=== PATIENT | female | born 1955 | race Caucasian/White ===

== ENCOUNTER 2017-03-16 07:15 | Emergency (ER) | payer OTHER ==
[~2017-03-16] VITALS: Ht 165.1 cm; Wt 95.7 kg
[~2017-03-16 07:15] MED LIST: CIPRO500 M1; FLEXERIL10 MG PO; MOBIC15 MG PO; MOTRIN600 MG PO; MOTRIN800 MG PO; NAPROSYN375 MG PO; NAPROSYN500 MG PO; NORCO 10/325 MG1 TAB PO; ROBAXIN500 M1 PO; TRAMADOL HCL50 MG PO; ZANTAC150 MG PO
[2017-03-16 07:28] VITALS: BP 107/68
[2017-03-16] MEDS ORDERED: METHOCARBAMOL 500 MG TAB PO ONE (07:45)
[2017-03-16] MEDS ORDERED: KETOROLAC 30 MG/ML VIAL IM ONE (07:45)
[2017-03-16] MEDS ORDERED: DEXAMETHASONE 4 MG/ML VIAL PO ONE (07:45)
--- NOTE | 2017-03-16 07:47 | NUR ---
61/F PRESENT TO ER C/O MID-BACK PAIN x 0400 TODAY. PT STATES PAIN 10/10 SHARP NON-RADIATING. PT DENIES INJURY OR TRAUMA. AAOx4, PERRLA, BREATHING EVEN AND EFFORTLESS. ERMD NOTIFIED OF PATIENT STATUS.
--- NOTE | 2017-03-16 07:48 | NUR ---
Patient being evaluated by physician at bedside.
--- NOTE | 2017-03-16 07:56 | NUR ---
PT TAKEN TO RADIOLOGY VIA WHEELCHAIR BY [employer].
--- NOTE | 2017-03-16 08:10 | NUR ---
PT RETURNED FROM RADIOLOGY.
[2017-03-16 08:37] VITALS: BP 111/65
--- NOTE | 2017-03-16 08:37 | NUR ---
Patient discharged with v/s stable. Written and verbal after care instructions given and explained. Patient alert, oriented and verbalized understanding of instructions. Ambulatory with steady gait. All questions addressed prior to discharge. ID band removed. Patient advised to follow up with PMD. Rx of ROBAXIN 500MG AND TRAMADOL 50MG TABLET given. Patient educated on indication of medication including possible reaction and side effects. Opportunity to ask questions provided and answered.
== END 2017-03-16 08:37 | disposition home or self-care (01) ==
LOC: MED 07:15
DX: G89.29 Other chronic pain (principal); M54.5 Low back pain; M54.9 Dorsalgia, unspecified; M19.90 Unspecified osteoarthritis, unspecified site; K21.9 Gastro-esophageal reflux disease without esophagitis
CPT/HCPCS: 72072; 72110; 81002; 81025; 96372; 99284; J1100; J1885

== ENCOUNTER 2017-06-08 16:03 | Emergency (ER) | payer OTHER ==
[~2017-06-08] VITALS: Ht 165.1 cm; Wt 98.1 kg
[~2017-06-08 16:03] MED LIST changes: -CIPRO500 M1; -FLEXERIL10 MG PO; +HYDR-4452 PO; -MOBIC15 MG PO; -MOTRIN600 MG PO; -MOTRIN800 MG PO; +NAPR375T2 PO; -NAPROSYN375 MG PO; -NAPROSYN500 MG PO; -NORCO 10/325 MG1 TAB PO; -ROBAXIN500 M1 PO; -TRAMADOL HCL50 MG PO; -ZANTAC150 MG PO
[2017-06-08 16:18] VITALS: BP 135/55
--- NOTE | 2017-06-08 17:01 | NUR ---
PATIENT AMBULATED TO BED 5.
[2017-06-08] MEDS ORDERED: ONDANSETRON 4 MG ODT PO ONE (17:35)
[2017-06-08] MEDS ORDERED: KETOROLAC 60 MG/2 ML VIAL IM ONE (17:35)
--- NOTE | 2017-06-08 17:40 | NUR ---
PATIENT PRESENTS TO ED WITH C/O EPIGASTRIC PAIN BURNING NON RADIATING PAIN X THIS AM WITH LOOSE STOOLS X9 EPISODES TODAY-----DENIES NAUSEA/ VOMITING HX----ARTHRITIS RX----NONE; DENIES N/V; SKIN IS PINK/WARM/DRY; AAOX4 WITH EVEN AND STEADY GAIT; LUNGS CLEAR BL; HR EVEN AND REGULAR; PT DENIES ANY FEVER, CP, SOB, OR COUGH AT THIS TIME; PATIENT STATES PAIN OF 10/10 AT THIS TIME; VSS; PATIENT POSITIONED FOR COMFORT; HOB ELEVATED; BEDRAILS UP X2; BED DOWN. ER MD MADE AWARE OF PT STATUS.
[2017-06-08 18:25] VITALS: BP 144/64
--- NOTE | 2017-06-08 18:25 | NUR ---
Patient discharged with v/s stable. Written and verbal after care instructions given and explained. Patient alert, oriented and verbalized understanding of instructions. Ambulatory with steady gait. All questions addressed prior to discharge. ID band removed. Patient advised to follow up with PMD. Rx of ZOFRAN, IMODIUM given. Patient educated on indication of medication including possible reaction and side effects. Opportunity to ask questions provided and answered.
== END 2017-06-08 18:25 | disposition home or self-care (01) ==
LOC: MED 16:03
DX: R10.13 Epigastric pain (principal); R19.7 Diarrhea, unspecified; R11.0 Nausea; K21.9 Gastro-esophageal reflux disease without esophagitis
CPT/HCPCS: 81002; 96372; 99283; J1885; S0119

== ENCOUNTER 2017-10-22 16:14 | Emergency (ER) | payer OTHER ==
[~2017-10-22] VITALS: Ht 167.6 cm; Wt 94.8 kg
[~2017-10-22 16:14] MED LIST changes: +ACET-787 PO; -HYDR-4452 PO
[2017-10-22 16:34] VITALS: BP 132/67
[2017-10-22] MEDS ORDERED: fentaNYL 0.05 MG/ML VIAL IM ONE (17:10)
--- NOTE | 2017-10-22 17:22 | NUR ---
62F BIB SELF WITH C/O 08/25 RIGHT LBP RADIATING TO LUE X 2 DAYS; PT STS URINARY INCONTINENCE X THIS AM; PT DENIES ANY RECENT INJURY OR FALL; PT HAS CHRONIC BACK PACK BUT STS PAIN TODAY IS WORSE; PT ABLE TO AMBULATE BUT WITH DIFFICULTLY; PT IS AOX4, RR ARE EVEN AND UNOLABORED; ER MD AWARE OF PT STATUS; NAD; WILL CONTINUE TO MONITOR.
--- NOTE | 2017-10-22 17:22 | NUR ---
PT TAKEN TO CT VIA GURMAURY ACCOMPANIED BY BLOCK SAW OPERATOR
--- NOTE | 2017-10-22 17:39 | NUR ---
PT RETURNED FROM CT VIA GURNEY ACCOMPANIED BY TRUCK DISPATCHER
[2017-10-22] MEDS ORDERED: NACL 0.9% 1,000 ML IV ONE (18:15)
[2017-10-22] MEDS ORDERED: HYDROmorphone 1 MG/ML AMP IVP ONE (18:15)
[2017-10-22] MEDS: NACL 0.9% 1,000 ML IV SCH (18:25)
[2017-10-22] MEDS ORDERED: methylPREDNISolone SS 125 MG/2 ML VIAL IVP ONE (18:25)
[2017-10-22] MEDS ORDERED: ONDANSETRON 4 MG/2 ML VIAL IVP PRN (18:25)
[2017-10-22] MEDS ORDERED: HYDROmorphone PFS 2 MG/ML SYR IVP PRN ×2 (18:25)
[2017-10-22] MEDS ORDERED: HYDROmorphone PFS 2 MG/ML SYR ONE (18:28)
[2017-10-22 18:51] LABS: BASOPHILS # (AUTO) 0.2 K/uL (0.00-0.22); BASOPHILS % (AUTO) 3.4 % (0.0-2.0); EOSINOPHILS # (AUTO) 0.1 K/uL (0-0.4); EOSINOPHILS % (AUTO) 1.9 % (0.0-4.0); HEMATOCRIT 38.9 % (36-48); LYMPHOCYTES % (AUTO) 28.1 % (20.5-51.1); MEAN CORPUSCULAR HEMOGLOBIN 31 pg (27-31); MEAN CORPUSCULAR HGB CONC 34 g/dL (33-37); MEAN CORPUSCULAR VOLUME 94 fL (80-94); MONOCYTES # (AUTO) 0.4 K/uL (0.8-1.0); MONOCYTES % (AUTO) 6.3 % (1.7-9.3); NEUTROPHILS # (AUTO) 4.2 K/uL (1.8-7.7); NEUTROPHILS % (AUTO) 60.3 % (42.2-75.2); PLATELET COUNT (AUTO) 248 K/uL (140-450); RED BLOOD CELL COUNT(AUTO) 4.16 MIL/uL (4.20-5.40); RED CELL DISTRIBUTION WIDTH 12.1 % (11.6-13.7); WHITE BLOOD COUNT (AUTO) 6.9 K/uL (4.8-10.8)
[2017-10-22 18:59] LABS: ANION GAP 10.4 (8-16); CARBON DIOXIDE 25.1 mmol/L (21-32); CREATININE 0.6 mg/dL (0.6-1.3); POTASSIUM 3.5 mmol/L (3.5-5.1)
[2017-10-22 19:07] LABS: PROTHROMBIN TIME 9.3 secs (10.8-13.4); TOTAL BILIRUBIN 0.2 mg/dL (0.0-1.0)
--- NOTE | 2017-10-22 19:15 | NUR ---
Patient will be admitted to care of [facility]. Admited to Med Surg. Will go to room 106a. Belongings list completed. Report to Rochelle Addison.
--- NOTE | 2017-10-22 19:15 | NUR ---
IV FLUIDS DISCONTINUED; TOTAL INFUSION OF 1000CC OF NS IV FLUIDS
--- NOTE | 2017-10-22 19:30 | NUR ---
PT ARRIVED FROM ER VIA GURNEY. BEDSIDE REPORT GIVEN BY ER NURSE. PT IS AAOX4. NO SIGNS OF ACUTE DISTRESS NOTED. ON ROOM AIR, RESPIRATIONS EVEN AND UNLABORED. IV ACCESS IS INTACT, PATENT AND ASYMPTOMATIC. SKIN INTACT. MRSA COLLECTED. PLAN OF CARE DISCUSSED, PT VERBALIZED UNDERSTANDING. BED IN LOW POSITION, BILATERAL HALF SIDE RAILS UP, CALL LIGHT WITHIN REACH, WILL CONTINUE TO MONITOR.
[2017-10-22 20:00] VITALS: BP 132/66
--- NOTE | 2017-10-22 21:00 | NUR ---
STARTED NORMAL SALINE AT 2100 AT 100 ML/HR.
[2017-10-23] VITALS: BP 136/72
[2017-10-23 00:49] LABS: APPEARANCE,URINE SL CLOUDY (CLEAR); BILIRUBIN,URINE NEGATIVE (NEGATIVE); BLOOD, URINE TRACE-L (NEGATIVE); COLOR,URINE YELLOW (YELLOW); LEUKOCYTE ESTERASE ,URINE NEGATIVE (NEGATIVE); NITRITE, URINE NEGATIVE (NEGATIVE); UGLUCOSE 2+ (NEGATIVE)
[2017-10-23 01:01] LABS: RBC,URINE 0-5 (RARE) /HPF (0-5); WBC,URINE 0-5 (RARE) /HPF (0-5)
--- NOTE | 2017-10-23 02:40 | NUR ---
PT IS SLEEPING, AROUSABLE TO VOICE. NO SIGNS OF ACUTE DISTRESS NOTED. RESPIRATIONS EVEN AND UNLABORED. BED IN LOW POSITION, BILATERAL HALF SIDE RAILS UP, CALL LIGHT WITHIN REACH, WILL CONTINUE TO MONITOR.
[2017-10-23 04:00] VITALS: BP 130/68
[2017-10-23] MEDS: ACETAMINOPHEN 325 MG TAB PO PRN ×2 (04:21→08:35)
[2017-10-23] MEDS: NACL 0.9% 1,000 ML IV SCH (04:25)
[2017-10-23 05:54] LABS: BASOPHILS # (AUTO) 0.1 K/uL (0.00-0.22); BASOPHILS % (AUTO) 1.1 % (0.0-2.0); EOSINOPHILS % (AUTO) 0.1 % (0.0-4.0); HEMATOCRIT 41.3 % (36-48); HEMOGLOBIN 13.5 g/dL (12.0-16.0); LYMPHOCYTES # (AUTO) 0.7 K/uL (2.5-16.5); MEAN CORPUSCULAR HEMOGLOBIN 31 pg (27-31); MEAN CORPUSCULAR HGB CONC 33 g/dL (33-37); MEAN CORPUSCULAR VOLUME 94 fL (80-94); MONOCYTES % (AUTO) 0.4 % (1.7-9.3); NEUTROPHILS # (AUTO) 6.7 K/uL (1.8-7.7); NEUTROPHILS % (AUTO) 89.4 % (42.2-75.2); PLATELET COUNT (AUTO) 255 K/uL (140-450); RED BLOOD CELL COUNT(AUTO) 4.39 MIL/uL (4.20-5.40); RED CELL DISTRIBUTION WIDTH 12.2 % (11.6-13.7); WHITE BLOOD COUNT (AUTO) 7.5 K/uL (4.8-10.8)
[2017-10-23 06:47] LABS: ANION GAP 11.7 (8-16); CREATININE 0.6 mg/dL (0.6-1.3); POTASSIUM 3.7 mmol/L (3.5-5.1); TOTAL BILIRUBIN 0.2 mg/dL (0.0-1.0)
--- NOTE | 2017-10-23 07:10 | NUR ---
ENDORSED PT TO AM NURSE FOR CONTINUITY OF CARE. PT IS IN STABLE CONDITION.
--- NOTE | 2017-10-23 07:15 | NUR ---
RECEIVED REPORT FROM VETERINARY POULTRY INSPECTOR NURSE, PT IS SLEEPING IN BED BUT EASILY AWAKEN, A/OX4, AMBULATORY, IV IS ON THE LEFT AC, PATENT, INTACT, FLUSHING WELL, NO S/S OF RESPIRATORY DISTRESS OR DISCOMFORT NOTED, DISCUSSED PLAN OF CARE WITH PT, PT VERBALIZED UNDERSTANDING, SAFETY/FALL PRECAUTIONS ARE IN PLACE, CALL LIGHT IS WITHIN REACH, WILL CONTINUE TO MONITOR.
[2017-10-23 08:00] VITALS: BP 131/65
[2017-10-23] MEDS ORDERED: ENOXAPARIN 30 MG/0.3 ML SYR SUBQ SCH (09:00)
--- NOTE | 2017-10-23 09:54 | NUR ---
PATIENT HAS BEEN SCREENED AND CATEGORIZED LOW NUTRITION RISK. PATIENT WILL BE SEEN WITHIN 7 DAYS OF ADMISSION. 10/29/[address]
--- NOTE | 2017-10-23 10:00 | NUR ---
PT SLEEPING IN BED, CALL LIGHT IS WITHIN REACH.
--- NOTE | 2017-10-23 12:45 | NUR ---
NS IV FLUID DISCONTINUED AT THIS TIME.
--- NOTE | 2017-10-23 13:00 | NUR ---
DISCHARGE INSTRUCTIONS GIVEN, ID WRIST BAND REMOVED, IV REMOVED, CATHETER TIP INTACT. PT STABLE UPON DISCHARGE ACCOMPANIED BY HER .
--- NOTE | 2017-11-02 17:15 | NUR ---
Joleen maria in ED - 11/02/17 at 1824 by JOSE JUAN IV FLUIDS DISCONTINUED; TOTAL INFUSION OF 1000CC OF NS IV FLUIDS
== END 2017-10-23 13:00 | disposition home or self-care (01) ==
LOC: MED 16:14 → MTU 18:30
PROVIDERS: ADMIT Internal Medicine; ATTEND Internal Medicine
DX: M54.5 Low back pain (principal); G89.29 Other chronic pain; K21.9 Gastro-esophageal reflux disease without esophagitis; M48.00 Spinal stenosis, site unspecified; M19.90 Unspecified osteoarthritis, unspecified site
CPT/HCPCS: 36415; 72131; 80053; 81001; 85025; 85610; 85730; 96361; 96372; 96374; 96375; 99285; G0378; J1170; J2930; J3010; J7030; J1650

== ENCOUNTER 2017-11-05 08:43 | Emergency (ER) | payer OTHER ==
[~2017-11-05] VITALS: Ht 167.6 cm; Wt 94.0 kg
[2017-11-05 08:47] VITALS: BP 145/64
--- NOTE | 2017-11-05 09:05 | NUR ---
PATIENT PRESENTS TO ED WITH LEFT SIDED BACK PAIN RADIAING TO SCAPULA /SHOULDER/ AND HEAD . PT STATES . DENIES N/V/D; SKIN IS PINK/WARM/DRY; AAOX4 WITH EVEN AND STEADY GAIT; LUNGS CLEAR BL; HR EVEN AND REGULAR; PT DENIES ANY FEVER, CP, SOB, OR COUGH AT THIS TIME; PATIENT STATES PAIN OF 9/10 AT THIS TIME; VSS; PATIENT POSITIONED FOR COMFORT; HOB ELEVATED; BEDRAILS UP X2; BED DOWN. ER MD MADE AWARE OF PT STATUS.
--- NOTE | 2017-11-05 09:09 | NUR ---
Patient being evaluated by DR REYEZ at bedside.
[2017-11-05] MEDS ORDERED: KETOROLAC 30 MG/ML VIAL IVP ONE (09:20)
--- NOTE | 2017-11-05 09:25 | NUR ---
PT TO CT SCAN VIA [facility]
--- NOTE | 2017-11-05 09:40 | NUR ---
RETURNED FROM CT VIA [facility]---EKG COMPLETED AND PLACED BACK ON MONITOR
--- NOTE | 2017-11-05 09:45 | NUR ---
BLOOD SAMPLES COLLECTED AND URINE AT BEDSIDE
[2017-11-05 10:42] LABS: HEMOGLOBIN 12.9 g/dL (12.0-16.0); MEAN CORPUSCULAR HEMOGLOBIN 32 pg (27-31); MEAN CORPUSCULAR HGB CONC 34 g/dL (33-37); MEAN CORPUSCULAR VOLUME 93 fL (80-94); PLATELET COUNT (AUTO) 303 K/uL (140-450); RED BLOOD CELL COUNT(AUTO) 4.08 MIL/uL (4.20-5.40); RED CELL DISTRIBUTION WIDTH 12.1 % (11.6-13.7); WHITE BLOOD COUNT (AUTO) 7.1 K/uL (4.8-10.8)
[2017-11-05 10:46] LABS: APPEARANCE,URINE CLEAR (CLEAR); BILIRUBIN,URINE NEGATIVE (NEGATIVE); BLOOD, URINE NEGATIVE (NEGATIVE); COLOR,URINE YELLOW (YELLOW); LEUKOCYTE ESTERASE ,URINE NEGATIVE (NEGATIVE); NITRITE, URINE NEGATIVE (NEGATIVE); PH,URINE 5.5 (5.0-9.0); UGLUCOSE NEGATIVE (NEGATIVE)
[2017-11-05 10:54] LABS: ANION GAP 11.7 (8-16); CARBON DIOXIDE 25.9 mmol/L (21-32); CREATININE 0.7 mg/dL (0.6-1.3); EOSINOPHILS % (MANUAL) 1 % (0-4); LYMPHOCYTES % (MANUAL) 30 % (20-46); MONOCYTES % (MANUAL) 6 % (5-12); POTASSIUM 3.6 mmol/L (3.5-5.1)
[2017-11-05 11:04] LABS: RBC,URINE NONE SEEN /HPF (0-5); WBC,URINE 0-5 (RARE) /HPF (0-5)
[2017-11-05 11:07] LABS: ALBUMIN 3.2 g/dL (3.4-5.0); TOTAL BILIRUBIN 0.4 mg/dL (0.0-1.0)
--- NOTE | 2017-11-05 11:16 | NUR ---
PT HAD BEEN RESTING WITH OU CLOSED, NO GRIMACE NO MOAN NOTED--AWAKEN BY PAIN TO JOINTS DUE TO BEING COLD PER PT---EXTRA WARM BLANKET HANDED TO PT--MD NOTIFIED-- SOON AFTER BLANKET HANDED TO PT--PT REMAINED RESTING WITH OU CLOSED NO GRIMACE NO MOAN---WILL CONTINUE TO OBSERVE FOR PAIN CONTROL
[2017-11-05] MEDS ORDERED: ACETAMINOPHEN EXTRA STRENGTH 500 MG TAB PO ONE (11:20)
[2017-11-05 11:32] VITALS: BP 123/51
--- NOTE | 2017-11-05 11:33 | NUR ---
Patient discharged with v/s stable. Written and verbal after care instructions given and explained. Patient alert, oriented and verbalized understanding of instructions. Ambulatory with steady gait. All questions addressed prior to discharge. ID band removed. Patient advised to follow up with PMD. Rx of TRAMADOL given. Patient educated on indication of medication including possible reaction and side effects. Opportunity to ask questions provided and answered. LAB RESULTS/ CT RESULTS HANDED TO PT---TO F/U WITH PMD THIS WEEK
== END 2017-11-05 11:33 | disposition home or self-care (01) ==
LOC: MED 08:43
DX: S43.402A Unspecified sprain of left shoulder joint, initial encounter (principal); G89.29 Other chronic pain; M54.5 Low back pain; M48.061 Spinal stenosis, lumbar region without neurogenic claudication; R55 Syncope and collapse; K21.9 Gastro-esophageal reflux disease without esophagitis; F17.210 Nicotine dependence, cigarettes, uncomplicated; Z79.899 Other long term (current) drug therapy; W19.XXXA Unspecified fall, initial encounter; Y93.89 Activity, other specified; Y92.098 Other place in other non-institutional residence as the place of occurrence of the external cause; Y99.8 Other external cause status
CPT/HCPCS: 36415; 70450; 71010; 72131; 73030; 80053; 81001; 84484; 85025; 93005; 96374; 99285; J1885; Q0092

== ENCOUNTER 2018-12-11 11:35 | Emergency (ER) | payer OTHER ==
[~2018-12-11] VITALS: Ht 165.1 cm; Wt 92.3 kg
[2018-12-11 11:43] VITALS: BP 85/47
--- NOTE | 2018-12-11 11:55 | NUR ---
63 YO F BIB SELF W/ C/O HEADACHE AND BACK PAIN X 3 DAYS. DENIES INJURY. STATES SHE HAS ARTHRITIS THAT CAUSES HER BACK PAIN. STATES HER HEAD FEELS LIKE IT HAS A BALLOON IN HER HEAD. TOOK "A WHOLE BOTTLE" OF ADVIL W/O RELIEF. DENIES ANY SI. PT AAOX4, PERRLA INTACT. PUPILS 3M. DENIES N/V. PT STATES HER BP IS ALWAYS LOW, STATES 85/47 IS NOT UNUSUAL FOR HER.
[2018-12-11 12:29] LABS: BASOPHILS # (AUTO) 0.1 K/uL (0.00-0.22); BASOPHILS % (AUTO) 0.8 % (0.0-2.0); EOSINOPHILS # (AUTO) 0.2 K/uL (0-0.4); EOSINOPHILS % (AUTO) 2.4 % (0.0-4.0); HEMOGLOBIN 13.4 g/dL (12.0-16.0); LYMPHOCYTES % (AUTO) 30.7 % (20.5-51.1); MEAN CORPUSCULAR HEMOGLOBIN 31 pg (27-31); MEAN CORPUSCULAR HGB CONC 33 g/dL (33-37); MEAN CORPUSCULAR VOLUME 93.7 fL (80-94); MONOCYTES # (AUTO) 0.5 K/uL (0.8-1.0); MONOCYTES % (AUTO) 7.1 % (1.7-9.3); NEUTROPHILS # (AUTO) 3.9 K/uL (1.8-7.7); PLATELET COUNT (AUTO) 303 K/uL (140-450); RED BLOOD CELL COUNT(AUTO) 4.38 MIL/uL (4.20-5.40); RED CELL DISTRIBUTION WIDTH 12.7 % (11.6-13.7); WHITE BLOOD COUNT (AUTO) 6.5 K/uL (4.8-10.8)
--- NOTE | 2018-12-11 12:30 | NUR ---
PATIENT REFUESED TO GIVE URINE AT THIS TIME.
[2018-12-11] MEDS ORDERED: KETOROLAC 30 MG/ML VIAL IVP ONE (12:45)
[2018-12-11] MEDS ORDERED: NACL 0.9% 1,000 ML IV ONE (12:45)
[2018-12-11] MEDS ORDERED: HYDROcodone/APAP 10/325 MG 1 TAB TAB PO ONE (12:45)
[2018-12-11 12:50] LABS: ANION GAP 8.9 (8-16); CARBON DIOXIDE 29.9 mmol/L (21-32); CREATININE 0.7 mg/dL (0.6-1.3); POTASSIUM 3.8 mmol/L (3.5-5.1)
[2018-12-11 12:53] LABS: PROTHROMBIN TIME 8.6 secs (10.8-13.4)
[2018-12-11 12:56] LABS: ALBUMIN 2.9 g/dL (3.4-5.0); TOTAL BILIRUBIN 0.2 mg/dL (0.0-1.0)
--- NOTE | 2018-12-11 13:00 | NUR ---
PATIENT UNABLE TO GIVE URINE AT THIS TIME.
[2018-12-11 14:24] VITALS: BP 92/50
--- NOTE | 2018-12-11 14:25 | NUR ---
Patient discharged with v/s stable. Written and verbal after care instructions given and explained. Patient verbalized understanding. Ambulatory with steady gait. All questions addressed prior to discharge. Advised to follow up with PMD.
== END 2018-12-11 14:25 | disposition home or self-care (01) ==
LOC: MED 11:35
DX: I95.9 Hypotension, unspecified (principal); R51 Headache; M54.9 Dorsalgia, unspecified; R50.9 Fever, unspecified; I10 Essential (primary) hypertension; Z79.891 Long term (current) use of opiate analgesic; Z79.1 Long term (current) use of non-steroidal anti-inflammatories (NSAID)
CPT/HCPCS: 70450; 80053; 84484; 85025; 85610; 85730; 93005; 96361; 96374; 99284; J1885; J7030

== ENCOUNTER 2019-05-10 11:43 | Emergency (ER) | payer OTHER ==
[~2019-05-10] VITALS: Ht 165.1 cm; Wt 68.0 kg
[2019-05-10 11:48] VITALS: BP 128/77
--- NOTE | 2019-05-10 12:01 | NUR ---
PT BIB SELF C/O LT KNEE PAIN X3 WEEKS AGO, DIZZINESS AND WEAKNESS STARTING 3 DAYS AGO, AND TINGLING IN FEET STARTING TODAY. PT REPORTS FALLING AT HOME WHILE STANDING ON A STEP, PT UNSURE OF HOW SHE FELL STATING "I WASN'T WALKING, JUST TRALKING TO MY SON, AND I JUST FELL." PT REPORTS FALLING ON LT KNEE, NO BRUISING, SWELLING, REDNESS, OR DEFORMITY PRESENT. + CMS. PT AAOX4, COOPERATIVE, PERRLA, FACIAL SYMMETRY INTACT, AND WAFER MACHINE OPERATOR STRONG/EQUAL. VSS. ER TO SEE PT. MEDHX:ARTHRITIS
[2019-05-10] MEDS ORDERED: MORPHINE SULFATE 4 MG/ML SYR IM ONE (12:15)
[2019-05-10] MEDS ORDERED: KETOROLAC 60 MG/2 ML VIAL IM ONE (12:15)
--- NOTE | 2019-05-10 12:30 | NUR ---
X-RAY AT BEDSIDE AT THIS TIME.
--- NOTE | 2019-05-10 13:27 | NUR ---
PT RESTING IN BED, ARROUSABLE BY VOICE. PT REPORTS PAIN AT 2/10 AT THIS TIME, VSS.
[2019-05-10 14:29] VITALS: BP 140/67
--- NOTE | 2019-05-10 14:29 | NUR ---
PT TO BE D/C , BOYFRIEND TAHIR CALLED TO PRIMARY TEACHING ASSISTANT PT D/T MEDICATIONS GIVEN IN ER AND PT IS DROWSY, TAHIR STATES HE CAN PRIMARY TEACHING ASSISTANT PT IN 10-15 MIN.
== END 2019-05-10 14:49 | disposition home or self-care (01) ==
LOC: MED 11:43
DX: S80.02XA Contusion of left knee, initial encounter (principal); I10 Essential (primary) hypertension; Z79.891 Long term (current) use of opiate analgesic; Z79.1 Long term (current) use of non-steroidal anti-inflammatories (NSAID); W19.XXXA Unspecified fall, initial encounter; Y93.89 Activity, other specified; Y92.89 Other specified places as the place of occurrence of the external cause; Y99.8 Other external cause status
CPT/HCPCS: 29505; 73562; 96372; 99283; J1885; J2270; Q0092

== ENCOUNTER 2020-08-16 01:40 | Emergency (ER) | payer SELFPAY ==
[~2020-08-16] VITALS: Ht 167.6 cm; Wt 89.9 kg
[~2020-08-16 01:40] MED LIST changes: -ACET-787 PO; +HYDR-5191 PO
[2020-08-16 01:50] VITALS: BP 142/77
--- NOTE | 2020-08-16 01:55 | NUR ---
PT AMBULATED TO BED WITH STEADY GAIT
--- NOTE | 2020-08-16 01:56 | NUR ---
65 YO F BIB SELF FOR C/C OF NAUSEA WITH NO VOMITING X2 HOURS WITH 7/10 DIFFUSE ABDOMINAL CRAMPING. PT STATES SHE DRANK ICED TEA THAT WAS NEAR/OR AROUND SOMEONE SPRAYING UNKNOW BUG SPRAY AND SHE THINKS SHE MAY HAVE INGESTED SOME. BOWEL SOUNDS NORMOACTIVE THROUGHOUT. LBM WAS YESTERDAY MORNING, SOFT AND FORMED. DENIES DIARRHEA. PT DENIES FEVER, CHILLS, COUGH, SOB, AND TRAVEL. BED LOCKED AND IN LOWEST POSITION. SIDE RAILS X1. MED HX: ARTHRITIS RX: DENIES NKA
[2020-08-16] MEDS ORDERED: ONDANSETRON 4 MG ODT PO ONE (02:05)
--- NOTE | 2020-08-16 02:08 | NUR ---
LABS COLLECTED AND SENT TO LAB
[2020-08-16 02:13] LABS: BASOPHILS # (AUTO) 0.1 K/uL (0.00-0.22); BASOPHILS % (AUTO) 0.9 % (0.0-2.0); EOSINOPHILS # (AUTO) 0.2 K/uL (0-0.4); EOSINOPHILS % (AUTO) 3.2 % (0.0-4.0); HEMOGLOBIN 12.7 g/dL (12.0-16.0); LYMPHOCYTES # (AUTO) 1.9 K/uL (2.5-16.5); MEAN CORPUSCULAR HEMOGLOBIN 32 pg (27-31); MEAN CORPUSCULAR HGB CONC 33 g/dL (33-37); MEAN CORPUSCULAR VOLUME 95.6 fL (80-94); MONOCYTES # (AUTO) 0.5 K/uL (0.8-1.0); MONOCYTES % (AUTO) 6.9 % (1.7-9.3); NEUTROPHILS # (AUTO) 3.9 K/uL (1.8-7.7); PLATELET COUNT (AUTO) 302 K/uL (140-450); RED BLOOD CELL COUNT(AUTO) 3.98 MIL/uL (4.20-5.40); RED CELL DISTRIBUTION WIDTH 13.3 % (11.6-13.7); WHITE BLOOD COUNT (AUTO) 6.5 K/uL (4.8-10.8)
--- NOTE | 2020-08-16 02:25 | NUR ---
PT TAKEN TO CT VIA WHEELCHAIR
[2020-08-16 02:27] LABS: ALBUMIN 3.2 g/dL (3.4-5.0); ANION GAP 16.6 (8-16); ASPARTATE AMINOTRANSFERASE 18 U/L (15-37); CARBON DIOXIDE 23.2 mmol/L (21-32); CHLORIDE 105 mmol/L (98-107); CREATININE 0.8 mg/dL (0.6-1.3); GFR ARICAN-AMERICAN 93 mL/min (>90); GLUCOSE 162 mg/dL (74-106); LIPASE 305 U/L (73-393); POTASSIUM 3.8 mmol/L (3.5-5.1); SODIUM SERUM 141 mmol/L (136-145); TOTAL BILIRUBIN 0.2 mg/dL (0.0-1.0); UREA NITROGEN, BLOOD 17 mg/dL (7-18)
--- NOTE | 2020-08-16 03:00 | NUR ---
pt states her nausea has resolved post po zofran
[2020-08-16 03:21] VITALS: BP 142/78
== END 2020-08-16 03:21 | disposition home or self-care (01) ==
LOC: MED 01:40
DX: R10.9 Unspecified abdominal pain (principal); R11.0 Nausea; I10 Essential (primary) hypertension; Z98.890 Other specified postprocedural states; Z79.899 Other long term (current) drug therapy
CPT/HCPCS: 36415; 74176; 80053; 83690; 85025; 99284; G0482; Q0162

== ENCOUNTER 2021-06-13 17:45 | Emergency (ER) | payer MEDICAID ==
[~2021-06-13] VITALS: Ht 167.6 cm; Wt 90.7 kg
[2021-06-13 17:57] VITALS: BP 122/70
--- NOTE | 2021-06-13 18:02 | NUR ---
PT W/C ASSISTED TO BED 10.
--- NOTE | 2021-06-13 18:08 | NUR ---
65/F presents to ED with c/o right knee pain. Patient states she was making her bed this morning when she felt a pull in her leg. Patient states she has constant 10/10 sharp pain that worsens with movement, stating she is unable to ambulate due to pain. Patient wheel chair assisted, states she normal uses no assistive devices to ambulate. Patient reports taking Advil prior to arrival to ED with some relief. Able to move extremities appropriately.
[2021-06-13] MEDS ORDERED: HYDROcodone/APAP 5/325 MG 1 TAB TAB PO ONE (18:25)
--- NOTE | 2021-06-13 18:27 | NUR ---
medical technologist hematology at bedside
--- NOTE | 2021-06-13 19:10 | NUR ---
Pt report given to Kirill. Transfer of care at this time.
--- NOTE | 2021-06-13 19:42 | NUR ---
PT. LAYING COMFORTABLY IN SUPINE POSITION. VOICES NO COMPLAINTS AT THIS TIME.
--- NOTE | 2021-06-13 20:17 | NUR ---
PT. REQUESTING FOOD, STATES "I'M HUNGRY." GIVEN CHICKEN SANDWICH AND ORANGE/APPLE JUICE.
[2021-06-13] MEDS ORDERED: ACET-9527 PO (20:52)
--- NOTE | 2021-06-13 20:52 | NUR ---
APPLIED KNEE IMMOBILIZER TO RIGHT KNEE WITHOUT ANY ISSUES. PT DEMONSTRATED PROPER USE OF CRUTCHES
[2021-06-13 21:05] VITALS: BP 122/70
--- NOTE | 2021-06-13 21:05 | NUR ---
Patient discharged with v/s stable. Written and verbal after care instructions given and explained. Patient alert, oriented and verbalized understanding of instructions. Ambulatory with steady gait. All questions addressed prior to discharge. ID band removed. Patient advised to follow up with PMD. Rx of HYDROCODONE/ACETAMINOPHEN given. Patient educated on indication of medication including possible reaction and side effects. Opportunity to ask questions provided and answered.
== END 2021-06-13 21:05 | disposition home or self-care (01) ==
LOC: MED 17:45
DX: S82.141A Displaced bicondylar fracture of right tibia, initial encounter for closed fracture (principal); X58.XXXA Exposure to other specified factors, initial encounter; Y93.89 Activity, other specified; Y92.89 Other specified places as the place of occurrence of the external cause; Y99.8 Other external cause status
CPT/HCPCS: 73562; 73700; 99284

== ENCOUNTER 2021-08-15 00:12 | Emergency (ER) | payer MEDICAID ==
[~2021-08-15] VITALS: Ht 167.6 cm; Wt 81.6 kg
[~2021-08-15 00:12] MED LIST changes: +ACET-9527 PO
[2021-08-15 00:23] VITALS: BP 153/120
--- NOTE | 2021-08-15 00:26 | NUR ---
TO ROOM 2 VIA W/C
--- NOTE | 2021-08-15 00:32 | NUR ---
66 yo f bib self with c/c of sharp lower abd pain 10/10 x3hrs. nonrad. pt took pepto and had to relief. pt is groaning and grasping abd. pt is unable to lie still. +n/v and chills. denies diarrhea and fever. pt states she doesnt recall the last time she had a bm. hx:arthritis, fractured knees rx: unable to recall allerg: denies
--- NOTE | 2021-08-15 00:42 | NUR ---
ermd at bedside examining pt.
--- NOTE | 2021-08-15 00:42 | NUR ---
partner reported they ate food that was made yesterday and pain started shortly after. denies anyone else feeling this way at home.
[2021-08-15] MEDS ORDERED: ONDANSETRON 4 MG/2 ML VIAL IVP ONE (00:55)
[2021-08-15] MEDS ORDERED: NACL 0.9% 1,000 ML IV ONE (00:55)
[2021-08-15] MEDS ORDERED: MORPHINE SULFATE 2 MG/ML SYR IVP ONE (00:55)
[2021-08-15 01:07] LABS: BASOPHILS # (AUTO) 0.1 K/uL (0.00-0.22); BASOPHILS % (AUTO) 0.8 % (0.0-2.0); EOSINOPHILS # (AUTO) 0.2 K/uL (0-0.4); EOSINOPHILS % (AUTO) 2.8 % (0.0-4.0); HEMATOCRIT 36.8 % (36-48); HEMOGLOBIN 12.3 g/dL (12.0-16.0); LYMPHOCYTES # (AUTO) 2.8 K/uL (2.5-16.5); LYMPHOCYTES % (AUTO) 35.3 % (20.5-51.1); MEAN CORPUSCULAR HEMOGLOBIN 32 pg (27-31); MEAN CORPUSCULAR HGB CONC 34 g/dL (33-37); MEAN CORPUSCULAR VOLUME 94.1 fL (80-94); MONOCYTES # (AUTO) 0.6 K/uL (0.8-1.0); NEUTROPHILS # (AUTO) 4.2 K/uL (1.8-7.7); NEUTROPHILS % (AUTO) 53.1 % (42.2-75.2); PLATELET COUNT (AUTO) 323 K/uL (140-450); RED BLOOD CELL COUNT(AUTO) 3.91 MIL/uL (4.20-5.40); RED CELL DISTRIBUTION WIDTH 13.4 % (11.6-13.7); WHITE BLOOD COUNT (AUTO) 7.9 K/uL (4.8-10.8)
--- NOTE | 2021-08-15 01:18 | NUR ---
pt is no longer crying. pt stated she feels better. o2 sat 88% after morphine. placed on 2l nc, o2 sat 100%, ermd made aware.
[2021-08-15 01:22] LABS: ALBUMIN 3.2 g/dL (3.4-5.0); ANION GAP 15.7 (8-16); CARBON DIOXIDE 23.7 mmol/L (21-32); CREATININE 0.6 mg/dL (0.6-1.3); POTASSIUM 3.4 mmol/L (3.5-5.1); TOTAL BILIRUBIN 0.3 mg/dL (0.0-1.0)
[2021-08-15] MEDS ORDERED: ACETAMINOPHEN EXTRA STRENGTH 500 MG TAB PO ONE (02:45)
--- NOTE | 2021-08-15 02:45 | NUR ---
pt ambulated to with assistance. urine specimen cup provided.
[2021-08-15] MEDS ORDERED: ONDANSETRON 4 MG ODT PO ONE (03:00)
[2021-08-15] MEDS ORDERED: MAGNESIUM CITRATE 300 ML BTL PO ONE ×2 (03:00→03:35)
--- NOTE | 2021-08-15 03:00 | NUR ---
PT AMBULATED BACK TO BED.
[2021-08-15] MEDS ORDERED: ONDA-24 SL (03:01)
[2021-08-15] MEDS ORDERED: ALUMINUM HYD/MAG/SIMETHICONE 30 ML, DICYCLOMINE HCL LIQUID 20 MG, LIDOCAINE VISCOUS 2% ... PO ONE ×3 (03:05)
[2021-08-15] MEDS ORDERED: DICYCLOMINE HCL LIQUID 10 MG/5 ML UDC ONE (03:12)
[2021-08-15] MEDS ORDERED: ALUMINUM HYD/MAG/SIMETHICONE 30 ML UDC ONE (03:12)
[2021-08-15] MEDS ORDERED: MAGNESIUM CITRATE 300 ML BTL ONE (03:28)
[2021-08-15 03:33] VITALS: BP 141/56
== END 2021-08-15 03:33 | disposition home or self-care (01) ==
LOC: MED 00:12
DX: R10.84 Generalized abdominal pain (principal); R11.2 Nausea with vomiting, unspecified
CPT/HCPCS: 36415; 74176; 80053; 83605; 85025; 96361; 96374; 96375; 99284; J2270; J2405; J7030

== ENCOUNTER 2021-11-20 13:33 | Emergency (ER) | payer MEDICAID ==
[~2021-11-20] VITALS: Ht 167.6 cm; Wt 99.8 kg
[~2021-11-20 13:33] MED LIST changes: +ONDA-188 SL
[2021-11-20 14:09] VITALS: BP 178/106
--- NOTE | 2021-11-20 14:19 | NUR ---
PT W/C ASSISTED TO LOBBY
--- NOTE | 2021-11-20 16:30 | NUR ---
ATTEMPTED TO CALL TO TRIAGE 3 TIMES NO ANSWER. NUMBER ON FILE NO ANSWER.
--- NOTE | 2021-11-20 16:49 | NUR ---
PATIENT LEFT WITHOUT BEING SEEN BY DR. HERNANDEZ. NO FURTHER CARE PROVIDED FOR PATIENT.
== END 2021-11-20 16:49 | disposition left against medical advice (07) ==
LOC: MED 13:33
DX: R11.2 Nausea with vomiting, unspecified (principal); Z53.21 Procedure and treatment not carried out due to patient leaving prior to being seen by health care provider

== ENCOUNTER 2023-03-18 15:10 | Inpatient (IN) | payer MEDICAID ==
[~2023-03-18] VITALS: Ht 167.6 cm; Wt 62.6 kg
[2023-03-18] MEDS: metroNIDAZOLE 500 MG/NS PREMIX 100 ML IV SCH (00:05)
[2023-03-18 15:20] VITALS: BP 182/74
[2023-03-18] MEDS ORDERED: ONDANSETRON 4 MG/2 ML VIAL IVP ONE (15:20)
[2023-03-18] MEDS ORDERED: MORPHINE SULFATE 4 MG/ML SYR IVP ONE (15:20)
--- NOTE | 2023-03-18 15:32 | NUR ---
PATIENT TAKEN TO CT
--- NOTE | 2023-03-18 15:45 | NUR ---
67 YO FEMALE PRESENTS TO ED WITH C/O SHARP INTERMITTENT 9/10 ABDOMINAL PAIN GOING ON FOR 2X DAYS. PATIENT ALSO COMPLAINS OF NAUSEA AND VOMITING ASSOCIATED WITH PAIN. DENIES CHEST PAIN OR SHORTNESS OF BREATH. DENIES ANY PMH AND ALLERGIES.
[2023-03-18 16:04] LABS: BASOPHILS # (AUTO) 0.1 K/uL (0.00-0.22); BASOPHILS % (AUTO) 0.8 % (0.0-2.0); EOSINOPHILS % (AUTO) 0.4 % (0.0-4.0); HEMATOCRIT 31.6 % (36-48); HEMOGLOBIN 10.2 g/dL (12.0-16.0); LYMPHOCYTES # (AUTO) 1.6 K/uL (2.5-16.5); LYMPHOCYTES % (AUTO) 19.8 % (20.5-51.1); MEAN CORPUSCULAR HEMOGLOBIN 24 pg (27-31); MEAN CORPUSCULAR HGB CONC 32 g/dL (33-37); MEAN CORPUSCULAR VOLUME 74.2 fL (80-94); MONOCYTES # (AUTO) 0.6 K/uL (0.8-1.0); MONOCYTES % (AUTO) 7.2 % (1.7-9.3); NEUTROPHILS # (AUTO) 5.8 K/uL (1.8-7.7); NEUTROPHILS % (AUTO) 71.8 % (42.2-75.2); PLATELET COUNT (AUTO) 627 K/uL (140-450); RED BLOOD CELL COUNT(AUTO) 4.25 MIL/uL (4.20-5.40); RED CELL DISTRIBUTION WIDTH 15.5 % (11.6-13.7); WHITE BLOOD COUNT (AUTO) 8.1 K/uL (4.8-10.8)
[2023-03-18] MEDS ORDERED: PIPERACILLIN/TAZOBACTAM 3.375 GM in DEXTROSE 5% 50 ML IV ONE (16:15)
[2023-03-18 16:19] LABS: ANION GAP 13.3 (8-16); CARBON DIOXIDE 25.9 mmol/L (21-32); CREATININE 0.5 mg/dL (0.6-1.3); POTASSIUM 3.2 mmol/L (3.5-5.1); TOTAL BILIRUBIN 0.5 mg/dL (0.0-1.0)
[2023-03-18] MEDS ORDERED: PIPERACILLIN/TAZOBACTAM 3.375 GM VIAL IV ONE (16:23)
--- NOTE | 2023-03-18 17:32 | NUR ---
PATIENT DENIES ANY HOME MEDICATION.
[2023-03-18] MEDS ORDERED: HYDROcodone/APAP 5/325 MG 1 TAB TAB PO PRN (17:35)
[2023-03-18] MEDS ORDERED: ACETAMINOPHEN 325 MG TAB PO PRN (17:35)
[2023-03-18] MEDS ORDERED: HYDROcodone/APAP 10/325 MG 1 TAB TAB PO PRN (17:35)
[2023-03-18] MEDS: ENOXAPARIN 40 MG/0.4 ML SYR SUBQ SCH (19:08)
[2023-03-18] MEDS ORDERED: cefTRIAXone 1,000 MG VIAL ONE (19:11)
--- NOTE | 2023-03-18 19:16 | NUR ---
REPORT GIVEN TO PM NURSE ANDREI.
--- NOTE | 2023-03-18 19:26 | NUR ---
Patient resting in bed, A/Ox4, chest rise and fall symmetrical, no s/s of distress, on monitor.
[2023-03-18] MEDS ORDERED: KCL 20 MEQ IN 100 mL PREMIX 100 ML IV ONE ×2 (19:40→19:47)
--- NOTE | 2023-03-18 19:55 | NUR ---
PT TAKEN BY OR TEAM
--- NOTE | 2023-03-18 19:55 | NUR ---
Patient picked up by OR Nurse Francisco DAY for appendectomy surgery. Report given to OR Nurse Francisco DAY, OR Nurse Singh RN verbalized understanding of report, no further questions. All belongings sent with patient. OR Nurse Francisco DAY verbalized understanding of room and report for Medsurg unit after surgery. Addendum: 03/18/23 at 1999 by [email or web address] Patient will be admitted to care of Dr. Toth. Will go to room OR for surgery. Belongings list completed. Patient picked up by OR Nurse Francisco DAY for appendectomy surgery. Report given to OR Nurse Francisco DAY, OR Nurse Francisco DAY verbalized understanding of report, no further questions. All belongings sent with patient. OR Nurse Francisco DAY verbalized understanding of room and report for Medsurg unit after surgery.
[2023-03-18] MEDS ORDERED: ROCURONIUM 50 MG/5 ML VIAL IV ONE ×2 (20:00→20:58)
[2023-03-18] MEDS ORDERED: KETOROLAC 30 MG/ML VIAL ONE ×2 (20:00→20:58)
[2023-03-18] MEDS ORDERED: SUGAMMADEX SODIUM 200 MG/2 ML VIAL IV ONE ×2 (20:00→21:01)
[2023-03-18] MEDS ORDERED: PROPOFOL 200 MG/20 ML VIAL IV ONE ×3 (20:00→20:58)
[2023-03-18] MEDS ORDERED: fentaNYL citrate 0.05 MG/ML - 50mL vial IV ONE (20:00)
[2023-03-18] MEDS ORDERED: SUCCINYLCHOLINE CHLORIDE 200 MG/10 ML VIAL IVP ONE ×2 (20:00→20:58)
[2023-03-18] MEDS ORDERED: ceFAZolin 1,000 MG VIAL ONE (20:00)
[2023-03-18] MEDS ORDERED: SEVOFLURANE 250 ML BTL INH ONE (20:00)
[2023-03-18] MEDS ORDERED: ONDANSETRON 4 MG/2 ML VIAL ONE ×2 (20:00→20:58)
[2023-03-18] MEDS ORDERED: BUPIVACAINE-MPF/EPI 0.25% 30 ML VIAL INJ ONE (20:06)
[2023-03-18] MEDS ORDERED: fentaNYL citrate 0.05 MG/ML VIAL ONE (20:14)
[2023-03-18] MEDS ORDERED: METOCLOPRAMIDE 10 MG/2 ML INJ VIAL IVP PRN (21:25)
[2023-03-18] MEDS ORDERED: hydrALAZINE 20 MG/ML VIAL IVP PRN (21:25)
[2023-03-18] MEDS ORDERED: LABETALOL 20 MG/4 ML VIAL IVP PRN (21:25)
[2023-03-18] MEDS: HYDROmorphone 1 MG/ML AMP IVP PRN ×2 (21:35→21:50)
[2023-03-18 22:30] VITALS: BP 95/60
[2023-03-18] MEDS: NACL 0.9% 1,000 ML IV SCH (22:30)
--- NOTE | 2023-03-18 22:30 | NUR ---
RECEIVED PT FROM OR / RECOVERY PER JAZZ , STILL SLEEPY , ALTHOUGH PT ANSWERING QUESTION CORRECTLY BUT SHE IS TOO SLEPPY AND EASILY GO BACK TO SLEEP , O2 SAT 97 5 , IV SITES INTACT AND PATENT . WILL HOOK TO TELE MONITOR . WILL COMPLETE FURTHER ADMISSION ASSESSMENT . PUT PT ON FALL PREVENTION PROTOCOL , CALL LIGHT WITHIN REACH . SKIN INTACT EXCEPT 3 SURGICAL INCISSION ON ABD. SEALED W/ DERMABOND , DENIES PAIN AT THIS TIME , GOT DILAUDID AT PRIOR TO TRANSFER HERE . POST OF LAP AP - WILL CONT. TO MONITOR .
[2023-03-18 22:48] LABS: ANION GAP 10.7 (8-16); CARBON DIOXIDE 27.8 mmol/L (21-32); CREATININE 0.6 mg/dL (0.6-1.3); POTASSIUM 3.5 mmol/L (3.5-5.1)
--- NOTE | 2023-03-18 23:40 | NUR ---
FOR CHEST / ABD CT W/ CONTRAST , BUT PT IS POST OP , STILL TOO EASILY , AROUSABLE BUT EASILY GO BACK TO SLEEP - NOT FAVORABLE TIME TO GET CONSENT FOR CONTRAST - WILL CONT. TO MONITOR .
[2023-03-19] MEDS: metroNIDAZOLE 500 MG/NS PREMIX 100 ML IV SCH ×4 (00:05→22:29)
--- NOTE | 2023-03-19 02:00 | NUR ---
SLEEPING , BUT AROUSABLE .
--- NOTE | 2023-03-19 03:10 | NUR ---
c/o pain - bp 127/ 65 , o2 sat 100 % , pr 65 , will medicate .
[2023-03-19 04:00] VITALS: BP 100/59
--- NOTE | 2023-03-19 04:00 | NUR ---
try to get the cpontrast consent , but pt is not fully understand the explanation , she sasking a lot of things about it - will endorse .
[2023-03-19 05:05] LABS: BASOPHILS % (AUTO) 0.6 % (0.0-2.0); EOSINOPHILS % (AUTO) 0.4 % (0.0-4.0); HEMATOCRIT 26.4 % (36-48); HEMOGLOBIN 8.4 g/dL (12.0-16.0); LYMPHOCYTES # (AUTO) 1.1 K/uL (2.5-16.5); LYMPHOCYTES % (AUTO) 17.8 % (20.5-51.1); MEAN CORPUSCULAR HEMOGLOBIN 24 pg (27-31); MEAN CORPUSCULAR HGB CONC 32 g/dL (33-37); MEAN CORPUSCULAR VOLUME 74.9 fL (80-94); MONOCYTES # (AUTO) 0.9 K/uL (0.8-1.0); MONOCYTES % (AUTO) 14.9 % (1.7-9.3); NEUTROPHILS % (AUTO) 66.3 % (42.2-75.2); PLATELET COUNT (AUTO) 494 K/uL (140-450); RED BLOOD CELL COUNT(AUTO) 3.52 MIL/uL (4.20-5.40); RED CELL DISTRIBUTION WIDTH 15.6 % (11.6-13.7)
--- NOTE | 2023-03-19 07:25 | NUR ---
ENDORSE PT FOR CONT. OF CARE , WHILE GIVING BEDSIDE REPORT PT SUDDENLY C/O PAIN - PER AM NURSE SHE WILL GIVE PAIN MED , ENDORSE TO AM NURSE THE METRONIDAZOLE IS STILL ON GOING SHE HAVE TO WATCH IT , AM NURSE VERBALIZES UNDERSTANDING .
[2023-03-19 07:56] LABS: ANION GAP 16.5 (8-16); CARBON DIOXIDE 23.1 mmol/L (21-32); CREATININE 0.5 mg/dL (0.6-1.3); POTASSIUM 3.6 mmol/L (3.5-5.1)
[2023-03-19 08:00] VITALS: BP 100/59
[2023-03-19] MEDS: NACL 0.9% 1,000 ML IV SCH ×2 (08:00→15:30)
--- NOTE | 2023-03-19 09:31 | NUR ---
PATIENT HAS BEEN SCREENED AND CATEGORIZED MODERATE NUTRITION RISK. PATIENT WILL BE SEEN WITHIN 3-5 DAYS OF ADMISSION. [address]
[2023-03-19] MEDS: HYDROmorphone 1 MG/ML AMP IVP PRN ×3 (10:49→20:24)
--- NOTE | 2023-03-19 11:51 | NUR ---
DC PLANNING ASSESSMENT COMPLETE PLEASE REFER TO ASSESSMENT FOR ADDITIONAL DETAILS PT REPORTS DC PLAN IS TO RETURN HOME WITH PARTNER PROVIDING TRANSPORTATION WHEN MEDICALLY STABLE. PT REPORTS SHE MAY REQUIRE RIDE SHARE IF PARTNER UNABLE TO P/UP. SW ENCOURAGED PT TO NOTIFY NURSE UPON DC, SO THAT UBER/LYFT CAN BE ARRANGED. PT VERBALIZED UNDERSTANDING Addendum: 03/19/23 at 1154 by Emily MALONE Amended: Links added.
[2023-03-19 12:00] VITALS: BP 143/71
[2023-03-19 16:00] VITALS: BP 141/73
--- NOTE | 2023-03-19 16:48 | NUR ---
pATIENT C/O PAIN 07/26, DILAUDID 1MG GIVEN IVP
--- NOTE | 2023-03-19 17:10 | NUR ---
pATIENT EXPRESSED RELIEF FROM PAIN 0/10
[2023-03-19 17:20] LABS: APPEARANCE,URINE CLEAR (CLEAR); BILIRUBIN,URINE NEGATIVE (NEGATIVE); BLOOD, URINE NEGATIVE (NEGATIVE); COLOR,URINE YELLOW (YELLOW); LEUKOCYTE ESTERASE ,URINE NEGATIVE (NEGATIVE); NITRITE, URINE NEGATIVE (NEGATIVE); UGLUCOSE NEGATIVE (NEGATIVE)
[2023-03-19] MEDS: ENOXAPARIN 40 MG/0.4 ML SYR SUBQ SCH (18:46)
[2023-03-19 20:00] VITALS: BP 122/78
--- NOTE | 2023-03-19 20:31 | NUR ---
8127 C/O SEVERE PAIN 06/25, dILAUDID 1MG GIVEN 1VP
--- NOTE | 2023-03-19 20:33 | NUR ---
1710 pATIENT EXPRESSED RELIEF, PAIN SCALE 0/10
--- NOTE | 2023-03-19 21:40 | NUR ---
HIT THE CALL LIGHT , PT C/O OF SEVERE PAIN - WILL MEDICATE .
--- NOTE | 2023-03-19 21:41 | NUR ---
REFUSED NORCO - SHE SAID IT DOES NOT WORKS - SHE IS NOW SO MAD , SHE WANTS PAIN SHOT . I REVEIWED THE PAIN MED FOR HER THE DILAUDID ORDERED FOR 4 DOSES IS ALREADY COMPLETED . - WILL REFER TO DR. GRACE .
--- NOTE | 2023-03-19 21:42 | NUR ---
PT IS SCREAMING , SO MAD , SHE IS SO IN PAIN . NO RESPONSE FROM DR. GRACE , WILL REFER TO DR Maria Elena JULIAN .
--- NOTE | 2023-03-19 21:43 | NUR ---
DR. JULIAN TEXT BACK TO MY MSG ABOUT THE PAIN OF THE PAIN , BUT HE DID NOT ORDER ANY PAIN MEDICINE . WILL RE REFER TO DR. GRACE .
[2023-03-19] MEDS ORDERED: HYDROmorphone PFS 2 MG/ML SYR IVP SCH (22:15)
--- NOTE | 2023-03-19 22:15 | NUR ---
DR. GRACE RESPONDED - HE ORDER DILAUDID 2MG TIV FOR SEVERE PAIN ONLY NEEDED AND FOR 1 DOSE ONLY - WILL CARRY OUT .
--- NOTE | 2023-03-19 22:30 | NUR ---
PT'S DAUGHTER CALL ME AND SHE JUST TO KNOW THE UPDATE OF PT'S STATUS , INFORMING HER THE CT SCAN W/ CONTRAST IS NOT YET DONE , AND PT . IS C/O PAIN . AND I'M STILL WAITING THE PHARMACIST TO VERFY IT . ONCE LARRY MARTIN VERIFIED I WILL GIVE IT .
[2023-03-19] MEDS ORDERED: HYDROmorphone PFS 2 MG/ML SYR IVP PRN (23:02)
--- NOTE | 2023-03-19 23:40 | NUR ---
WHEN I RE ASSESS THE PT'S PAIN I FOUND PT IS SLEEPING SOUNDLY - I DID NOT BOTHER HER , CALL LIGHT WITHIN REACH AND WILL RE ASSESS THE PAIN AGAIN .
--- NOTE | 2023-03-20 01:00 | NUR ---
SLEEPING , CALL LIGHT WITHIN REACH .
--- NOTE | 2023-03-20 02:00 | NUR ---
SLEEPING , CALL LIGHT WITHIN REACH .
[2023-03-20] MEDS ORDERED: HYDROmorphone PFS 2 MG/ML SYR IVP PRN ×2 (03:35→06:15)
--- NOTE | 2023-03-20 03:40 | NUR ---
ROUNDS , PT 'S C/O PAIN - SHE RATES IT 06/25 - WILL MEDICATE . Addendum: 03/20/23 at 0346 by Jillian Sin RN REVIEWED THE EMAR I FOUND OUT THE PHARMACIST DC THE DILAUDID 2MG TIV FOR SEBV . PAIN FOR 1 DOSE ONLY ORDERED BY DR. GRACE - WILL CALL THE PHARMACIST TO PUT IT BACK TO [facility] BECAUSE IT IS PRN DOSE FOR 1 DOSE ONLY IN CASE PT C/O SEV . PAIN . - PHARMACIST VERBALIZES UNDERSTANDING .
--- NOTE | 2023-03-20 03:46 | NUR ---
RE VISIT PT . - SHE IS SLEEPING .
[2023-03-20] MEDS: NACL 0.9% 1,000 ML IV SCH (03:49)
[2023-03-20 04:00] VITALS: BP 127/68
[2023-03-20 04:52] LABS: BASOPHILS % (AUTO) 0.9 % (0.0-2.0); EOSINOPHILS % (AUTO) 1.2 % (0.0-4.0); HEMATOCRIT 25.5 % (36-48); LYMPHOCYTES # (AUTO) 1.5 K/uL (2.5-16.5); LYMPHOCYTES % (AUTO) 37.7 % (20.5-51.1); MEAN CORPUSCULAR HEMOGLOBIN 24 pg (27-31); MEAN CORPUSCULAR HGB CONC 32 g/dL (33-37); MEAN CORPUSCULAR VOLUME 74.7 fL (80-94); MONOCYTES # (AUTO) 0.6 K/uL (0.8-1.0); MONOCYTES % (AUTO) 14.7 % (1.7-9.3); NEUTROPHILS # (AUTO) 1.8 K/uL (1.8-7.7); NEUTROPHILS % (AUTO) 45.5 % (42.2-75.2); PLATELET COUNT (AUTO) 437 K/uL (140-450); RED BLOOD CELL COUNT(AUTO) 3.41 MIL/uL (4.20-5.40); RED CELL DISTRIBUTION WIDTH 15.5 % (11.6-13.7); WHITE BLOOD COUNT (AUTO) 3.9 K/uL (4.8-10.8)
--- NOTE | 2023-03-20 06:10 | NUR ---
AWAKE , C/O PAIN , SHE RATES THE PAIN 8 /10 . BP 137/ 67 , PA 85 , O2 SAT 98 % , RR 20 - WILL MEDICATE .
[2023-03-20] MEDS: metroNIDAZOLE 500 MG/NS PREMIX 100 ML IV SCH (06:51)
--- NOTE | 2023-03-20 07:26 | NUR ---
endorsed pt for cont. of care .
[2023-03-20 08:00] VITALS: BP 96/52
--- NOTE | 2023-03-20 08:49 | NUR ---
PATIENT SAYS SHE WILL HAVE HER PICK HER UP FOR DISCHARGE. CHARGE NURSE SAYS PATIENT ASKING FOR FOOD AND TO GIVE APPLESAUCE. PATIENT GIVEN APPLE SAUCE.
--- NOTE | 2023-03-20 09:11 | NUR ---
Intact 20 gauge intravenous catheter tip removal from left antecubital space and right wrist.
[2023-03-20] MEDS ORDERED: HYDR2TAB6 PO (09:21)
[2023-03-20] MEDS ORDERED: CEPH-588 PO (09:21)
[2023-03-20 09:39] VITALS: BP 96/52
--- NOTE | 2023-03-20 10:13 | NUR ---
Patient and spouse education on discharge instruction, medication, after care and given a copy of all information. Spouse and patient verbalize understanding of teaching. Removal of hospital identification bracelet. Patient sent home via private automobile.
== END 2023-03-20 10:40 | disposition home or self-care (01) | DRG 234 ==
LOC: MED 15:10 → OBSVTOIN 17:41 → MTU 17:41
PROVIDERS: ADMIT Internal Medicine; ATTEND Internal Medicine
PROC: 0DTJ4ZZ Resection of Appendix, Percutaneous Endoscopic Approach (ICD-10-PCS; principal; 2023-03-18 19:30)
DX: K35.80 Unspecified acute appendicitis (principal); E44.1 Mild protein-calorie malnutrition; R16.0 Hepatomegaly, not elsewhere classified; E87.1 Hypo-osmolality and hyponatremia; R91.1 Solitary pulmonary nodule; D50.9 Iron deficiency anemia, unspecified; G89.29 Other chronic pain; M54.9 Dorsalgia, unspecified; E87.6 Hypokalemia; Z20.822 Contact with and (suspected) exposure to COVID-19; Z79.891 Long term (current) use of opiate analgesic; Z68.22 Body mass index [BMI] 22.0-22.9, adult; Z79.899 Other long term (current) drug therapy; D75.838 Other thrombocytosis
CPT/HCPCS: 36415; 71045; 80048; 80053; 81003; 82374; 83690; 85025; 87040; 87081; 96365; 96375; 99285; J0330; J0690; J0696; J1170; J1650; J1885; J2270; J2405; J2543; J2704; J3010; J3480; J3490; J7030; J7060

== ENCOUNTER 2023-04-03 11:52 | Emergency (ER) | payer MEDICAID ==
[~2023-04-03] VITALS: Ht 167.6 cm; Wt 61.2 kg
[~2023-04-03 11:52] MED LIST changes: -ACET-9527 PO; +CEPH-588 PO; -HYDR-5191 PO; +HYDR2TAB6 PO; -NAPR375T2 PO; -ONDA-188 SL
[2023-04-03 12:03] VITALS: BP 152/95
[2023-04-03] MEDS ORDERED: NACL 0.9% 1,000 ML IV SCH (12:40)
--- NOTE | 2023-04-03 13:00 | NUR ---
MOVED TO BED 4. PT CRYING IN PAIN, STOPS WHEN NO ONE NEAR HER. FELL ASLEEP, NO DISTRESS
[2023-04-03 13:06] LABS: BASOPHILS # (AUTO) 0.1 K/uL (0.00-0.22); BASOPHILS % (AUTO) 0.9 % (0.0-2.0); EOSINOPHILS # (AUTO) 0.2 K/uL (0-0.4); EOSINOPHILS % (AUTO) 2.7 % (0.0-4.0); HEMATOCRIT 24.6 % (36-48); HEMOGLOBIN 7.6 g/dL (12.0-16.0); LYMPHOCYTES # (AUTO) 2.3 K/uL (2.5-16.5); MEAN CORPUSCULAR HEMOGLOBIN 23 pg (27-31); MEAN CORPUSCULAR HGB CONC 31 g/dL (33-37); MEAN CORPUSCULAR VOLUME 74.7 fL (80-94); MONOCYTES # (AUTO) 0.4 K/uL (0.8-1.0); MONOCYTES % (AUTO) 5.2 % (1.7-9.3); NEUTROPHILS # (AUTO) 5.3 K/uL (1.8-7.7); NEUTROPHILS % (AUTO) 63.2 % (42.2-75.2); PLATELET COUNT (AUTO) 501 K/uL (140-450); RED BLOOD CELL COUNT(AUTO) 3.29 MIL/uL (4.20-5.40); RED CELL DISTRIBUTION WIDTH 15.9 % (11.6-13.7); WHITE BLOOD COUNT (AUTO) 8.3 K/uL (4.8-10.8)
--- NOTE | 2023-04-03 13:15 | NUR ---
WOKE UP "I FEEL BETTER ALREADY" SAYS KENDALL
[2023-04-03] MEDS ORDERED: MORPHINE SULFATE 4 MG/ML SYR IVP ONE (13:20)
[2023-04-03 13:50] LABS: ALBUMIN 2.5 g/dL (3.4-5.0); CARBON DIOXIDE 26.6 mmol/L (21-32); CREATININE 0.4 mg/dL (0.6-1.3); POTASSIUM 3.6 mmol/L (3.5-5.1); TOTAL BILIRUBIN 0.1 mg/dL (0.0-1.0)
[2023-04-03 15:22] LABS: APPEARANCE,URINE CLEAR (CLEAR); BILIRUBIN,URINE NEGATIVE (NEGATIVE); BLOOD, URINE NEGATIVE (NEGATIVE); COLOR,URINE YELLOW (YELLOW); LEUKOCYTE ESTERASE ,URINE 1+ (NEGATIVE); NITRITE, URINE NEGATIVE (NEGATIVE); PH,URINE 6.5 (5.0-9.0); UGLUCOSE NEGATIVE (NEGATIVE)
[2023-04-03 15:50] LABS: RBC,URINE 0-5 /HPF (0-5)
[2023-04-03] MEDS ORDERED: POLY17PD72 PO (16:10)
[2023-04-03] MEDS ORDERED: CIPR250T6 PO (16:10)
[2023-04-03 16:19] VITALS: BP 142/80
--- NOTE | 2023-04-03 16:19 | NUR ---
Patient discharged with v/s stable. Written and verbal after care instructions given and explained. Patient alert, oriented and verbalized understanding of instructions. Ambulatory with steady gait. All questions addressed prior to discharge. ID band removed. Patient advised to follow up with PMD. Rx of CIPRO, CLEARLAX given. Patient educated on indication of medication including possible reaction and side effects. Opportunity to ask questions provided and answered.
[2023-04-04] MEDS ORDERED: ACET-8905 PO (20:01)
[2023-04-04] MEDS ORDERED: IBUP-2213 PO (20:01)
== END 2023-04-03 16:19 | disposition home or self-care (01) ==
LOC: MED 11:52
DX: N30.00 Acute cystitis without hematuria (principal); I10 Essential (primary) hypertension; Z90.49 Acquired absence of other specified parts of digestive tract; Z79.899 Other long term (current) drug therapy
CPT/HCPCS: 36415; 74177; 80053; 81001; 83690; 85025; 87086; 93005; 96360; 99285; J7030; Q9967

== ENCOUNTER 2023-04-04 19:15 | Emergency (ER) | payer MEDICAID ==
[~2023-04-04] VITALS: Ht 167.6 cm; Wt 59.0 kg
[~2023-04-04 19:15] MED LIST changes: +CIPR250T6 PO; +POLY17PD72 PO
[2023-04-04 19:30] VITALS: BP 117/67
--- NOTE | 2023-04-04 19:30 | NUR ---
to bed ambulatory
[2023-04-04 19:35] VITALS: BP 117/67
[2023-04-04] MEDS ORDERED: KETOROLAC 60 MG/2 ML VIAL IM ONE (19:55)
[2023-04-04] MEDS ORDERED: IBUP-2213 PO (20:01)
[2023-04-04] MEDS ORDERED: ACET-8905 PO (20:01)
== END 2023-04-04 20:14 | disposition home or self-care (01) ==
LOC: MED 19:15
DX: R10.31 Right lower quadrant pain (principal); Z79.899 Other long term (current) drug therapy; Z90.49 Acquired absence of other specified parts of digestive tract
CPT/HCPCS: 96372; 99283; J1885

== ENCOUNTER 2023-04-06 08:07 | Inpatient (IN) | payer MEDICAID ==
[~2023-04-06] VITALS: Ht 167.6 cm; Wt 58.5 kg
[~2023-04-06 08:07] MED LIST changes: +ACET-8905 PO; +IBUP-2213 PO
[2023-04-06 08:12] VITALS: BP 141/75
--- NOTE | 2023-04-06 08:21 | NUR ---
TO BED 3 VIA W/C. NO ACUTE DISTRESS.
--- NOTE | 2023-04-06 08:24 | NUR ---
67 YO FEMALE PRESENTS TO THE ED WITH COMPLAINT OF ABDOMINAL PAIN. 08/25 GOING ON FOR 3 HOURS.
[2023-04-06] MEDS ORDERED: KETOROLAC 30 MG/ML VIAL IM ONE (09:05)
[2023-04-06 09:15] LABS: BASOPHILS % (AUTO) 0.2 % (0.0-2.0); EOSINOPHILS # (AUTO) 0.2 K/uL (0-0.4); EOSINOPHILS % (AUTO) 2.7 % (0.0-4.0); HEMATOCRIT 24.7 % (36-48); HEMOGLOBIN 7.9 g/dL (12.0-16.0); LYMPHOCYTES # (AUTO) 2.3 K/uL (2.5-16.5); LYMPHOCYTES % (AUTO) 35.3 % (20.5-51.1); MEAN CORPUSCULAR HEMOGLOBIN 23 pg (27-31); MEAN CORPUSCULAR HGB CONC 32 g/dL (33-37); MONOCYTES # (AUTO) 0.4 K/uL (0.8-1.0); MONOCYTES % (AUTO) 6.9 % (1.7-9.3); NEUTROPHILS # (AUTO) 3.6 K/uL (1.8-7.7); NEUTROPHILS % (AUTO) 54.9 % (42.2-75.2); PLATELET COUNT (AUTO) 534 K/uL (140-450); RED BLOOD CELL COUNT(AUTO) 3.38 MIL/uL (4.20-5.40); RED CELL DISTRIBUTION WIDTH 16.4 % (11.6-13.7); WHITE BLOOD COUNT (AUTO) 6.5 K/uL (4.8-10.8)
[2023-04-06 09:31] LABS: ALBUMIN 2.9 g/dL (3.4-5.0); ANION GAP 12.9 (8-16); CARBON DIOXIDE 24.9 mmol/L (21-32); CREATININE 0.5 mg/dL (0.6-1.3); POTASSIUM 3.8 mmol/L (3.5-5.1); TOTAL BILIRUBIN 0.3 mg/dL (0.0-1.0)
[2023-04-06] MEDS ORDERED: MORPHINE SULFATE 4 MG/ML SYR IVP ONE (11:10)
[2023-04-06] MEDS ORDERED: NACL 0.9% 1,000 ML IV ONE (11:10)
[2023-04-06] MEDS ORDERED: ACETAMINOPHEN 100 ML IV ONE (11:30)
[2023-04-06] MEDS ORDERED: ACETAMINOPHEN 100 ML IV SCH (12:30)
[2023-04-06 13:46] LABS: APPEARANCE,URINE CLEAR (CLEAR); BILIRUBIN,URINE NEGATIVE (NEGATIVE); BLOOD, URINE NEGATIVE (NEGATIVE); COLOR,URINE YELLOW (YELLOW); LEUKOCYTE ESTERASE ,URINE 2+ (NEGATIVE); NITRITE, URINE NEGATIVE (NEGATIVE); UGLUCOSE NEGATIVE (NEGATIVE)
[2023-04-06 14:02] LABS: RBC,URINE 0-5 /HPF (0-5)
--- NOTE | 2023-04-06 14:03 | NUR ---
AMBULATED TO WITH STEADY GAIT, VOIDED URINE INTO SPECIMEN HAT FOR SAMPLE
[2023-04-06] MEDS ORDERED: ONDANSETRON 4 MG/2 ML VIAL IVP PRN (14:35)
--- NOTE | 2023-04-06 14:45 | NUR ---
PT STATES UNABLE TO RECALL MEDS DUE TO LEVEL OF DISCOMFORT AND VOMITING AT THIS TIME. TO ATTEMPT AT A LATER TIME OR WHEN HUBAND RETURNS.
[2023-04-06] MEDS: LACTATED RINGERS 1,000 ML IV SCH (15:18)
--- NOTE | 2023-04-06 16:55 | NUR ---
Patient will be admitted to care of MICHELLE SMITH. Admited to MED SURG. Will go to room 106A. Belongings list completed. Report to DILMA RN.
--- NOTE | 2023-04-06 17:20 | NUR ---
RECEIVED PATIENT FROM ED FOR CONTINUATION OF CARE. PATIENT SEEN AMBULATORY, BUT IN PAIN. PROVIDED COMFORT MEASURES FOR PATIENT. PROVIDED ADMISSION INTERVENTIONS. CARE PLAN BEGAN.
--- NOTE | 2023-04-06 19:20 | NUR ---
ENDORSED PT TO PM NURSE FOR CONTINUATION OF CARE.
--- NOTE | 2023-04-06 19:24 | NUR ---
RECEIVED BEDSIDE REPORT FROM AM NURSE FOR CONTINUITY OF CARE. PATIENT AWAKE ALERT ORIENTED, VERBALLY RESPONSIVE. ABLE TO MAKE NEEDS KNOWN. NO SOB, ON ROOM AIR. BED WHEELS LOCKED IN LOW POSITION. CALL LIGHT WITHIN REACH. NO COMPLAINTS OF PAIN AT THIS TIME. NEEDS ATTENDED TO. WILL CONTINUE TO MONITOR.
[2023-04-06 20:00] VITALS: BP 114/60
--- NOTE | 2023-04-06 22:30 | NUR ---
RECTAL TUBE INSERTED ORDERED.
[2023-04-06] MEDS: BOWEL EVACUANT DRINK 4,000 ML PDS MC SCH (23:02)
[2023-04-07] MEDS: LACTATED RINGERS 1,000 ML IV SCH ×4 (00:35→21:20)
[2023-04-07] MEDS: MORPHINE SULFATE 2 MG/ML SYR IVP PRN ×2 (01:51→12:24)
--- NOTE | 2023-04-07 01:51 | NUR ---
PATIENT COMPLAINED OF SEVERE PAIN TO ABDOMEN, MEDICATED WITH MORPHINE IVP
[2023-04-07 04:00] VITALS: BP 111/54
[2023-04-07 06:39] LABS: ANION GAP 9.6 (8-16); CARBON DIOXIDE 26.7 mmol/L (21-32); CREATININE 0.4 mg/dL (0.6-1.3); POTASSIUM 3.3 mmol/L (3.5-5.1)
[2023-04-07 06:43] LABS: MAGNESIUM 1.6 mg/dL (1.8-2.4); PHOSPHORUS 3.2 mg/dL (2.5-4.9)
[2023-04-07 06:49] LABS: BASOPHILS % (AUTO) 0.8 % (0.0-2.0); EOSINOPHILS # (AUTO) 0.1 K/uL (0-0.4); EOSINOPHILS % (AUTO) 2.5 % (0.0-4.0); HEMOGLOBIN 7.5 g/dL (12.0-16.0); LYMPHOCYTES # (AUTO) 1.9 K/uL (2.5-16.5); LYMPHOCYTES % (AUTO) 49.5 % (20.5-51.1); MEAN CORPUSCULAR HEMOGLOBIN 23 pg (27-31); MEAN CORPUSCULAR HGB CONC 32 g/dL (33-37); MEAN CORPUSCULAR VOLUME 72.9 fL (80-94); MONOCYTES # (AUTO) 0.3 K/uL (0.8-1.0); MONOCYTES % (AUTO) 7.8 % (1.7-9.3); NEUTROPHILS # (AUTO) 1.5 K/uL (1.8-7.7); NEUTROPHILS % (AUTO) 39.4 % (42.2-75.2); PLATELET COUNT (AUTO) 490 K/uL (140-450); RED BLOOD CELL COUNT(AUTO) 3.29 MIL/uL (4.20-5.40); WHITE BLOOD COUNT (AUTO) 3.9 K/uL (4.8-10.8)
[2023-04-07] MEDS ORDERED: MIDAZOLAM 2 MG/2 ML VIAL ONE (07:10)
[2023-04-07] MEDS ORDERED: fentaNYL citrate 0.05 MG/ML VIAL ONE (07:10)
[2023-04-07] MEDS ORDERED: LIDOCAINE 2% 100 MG/5 ML UJET TP ONE (07:11)
--- NOTE | 2023-04-07 07:15 | NUR ---
RECEIVED PATIENT FROM NURSE FOR CONTINAUATION OF CARE
--- NOTE | 2023-04-07 07:15 | NUR ---
DR NG CALLED WITH ORDERS NOTED , CARRIED OUT. ENDORSED TO AM NURSE FOR CONTINUITY OF CARE.
[2023-04-07 08:00] VITALS: BP 162/54
[2023-04-07] MEDS ORDERED: BOWEL EVACUANT DRINK 4,000 ML PDS PO SCH (08:00)
--- NOTE | 2023-04-07 09:13 | NUR ---
PATIENT HAS BEEN SCREENED AND CATEGORIZED LOW NUTRITION RISK. PATIENT WILL BE SEEN WITHIN 7 DAYS OF ADMISSION. 04/13/[address] MARCIN MC[address] RD
[2023-04-07] MEDS: ENOXAPARIN 40 MG/0.4 ML SYR SUBQ SCH (09:51)
--- NOTE | 2023-04-07 13:23 | NUR ---
DC PLANNIN YRS OLD FEMALE PATIENT WAS ADMITTED FROM HOME WITH A DX OF GI OBSTRUCTION. PATIENT HAS A HX OF CHRONIC BACK PAIN AND RHEUMATOID ARTHRITIS. ABDOMINAL X-RAY, CT ABD SHOWED NONSPECIFIC BOWEL GAS PATTERN WITH A FEW FAS FILLED DILATED LOOPS SMALL BOWEL. SEEN BY GI DR HAIR PENDING FOR COLONOSCOPY. CM TO FOLLOW Addendum: 04/07/23 at 1631 by Rebecca Cristina RN DC PLANNING: RECEIVED A CALL FROM ALLIED PHYSICIAN CM SPOKE WITH TRACY UPDATED PT'S CLINICAL AND PER TRACY IF PT IS STABLE FOR TRANSFER WOULD LIKE TO TAKE PATENT TO THE CONTRACTED FACILITY. DISCUSSED WITH DR BEVERLY AND ORDERED STABLE FOR TRANSFER. FAXED ALL PAPERWORK TO ALLIED PHYSICIAN [phone] AND SPOKE WITH TRACY PROVIDED DR BEVERLY'S CELL PHONE. NOTIFIED DILMA RN AND PATIENT. CM TO FOLLOW Addendum: 04/08/23 at 1624 by Rebecca Cristina RN DC PLANNING: CM SPOKE WITH PATIENT AND EXPLAINED INSURANCE STATED SHE WILL BE FINANCIAL RESPONSIBLE FOR REFUSAL OF TRANSFERRING TO THE CONTRACTED FACILITY. PATIENT STATED THEY COME TO TAKE HER AT 11:30PM WHICH SHE WAS SLEEPING AND NOT COMFORTABLE TO GO AT THAT TIME. SHE PREFERRED TO STAY AT [facility] SHE HAS DONE IT BEFORE AND KNOWS HOW TO FIGHT WITH THEM. AND WILL CALL THE INSURANCE . CM NOTIFIED TRACY AT ALLIED PHYSICIAN. CM TO FOLLOW
--- NOTE | 2023-04-07 14:30 | NUR ---
DC PLANNING ASSESSMENT COMPLETE PLEASE REFER TO ASSESSMENT FOR ADDITIONAL DETAILS JENNIE REPORTS TENTATIVE DC PLAN IS FOR PT TO RETURN HOME ONCE MEDICALLY CLEARED BY PHYSICIAN. PARTNER TO PROVIDE TRANSPORTATION ONCE CLEARED FOR DC Addendum: 04/07/23 at 1432 by Emily David SS Amended: Links added.
[2023-04-07] MEDS: HYDROcodone/APAP 5/325 MG 1 TAB TAB PO PRN (15:53)
--- NOTE | 2023-04-07 15:53 | NUR ---
MEDICATED PRN [facility] FOR LOWER BACK PAIN.
[2023-04-07 16:00] VITALS: BP 116/54
[2023-04-07] MEDS: BOWEL EVACUANT DRINK 4,000 ML PDS MC SCH (17:00)
[2023-04-07 20:00] VITALS: BP 111/54
--- NOTE | 2023-04-07 21:59 | NUR ---
ENCOURAGED PATIENT TO CONTINUE DRINKING GOLYTELY BUT PATIENTVREFUSED. DR. NG MADE AWARE.
--- NOTE | 2023-04-07 22:27 | NUR ---
RECEIVED A CALL FROM DR. NOELLE GONSALEZ INSURANCE PROOF PLATE MAKER WOULD LIKE PATIENT TO BE TRANSFERRED TO [facility]. PER BUSINESS STRATEGIST SAMPSON HE TOLD DR DRAKE REGARDING THE PROCEDURES TO BE DONE TOMORROW AND HE SAID THEY WILL DO IT IN [facility].
[2023-04-07 22:35] VITALS: BP 111/54
--- NOTE | 2023-04-07 22:36 | NUR ---
Texted Dr Patten to let him know that pt will be transferred to [facility] per it's [employer] phone call. Dr Crockett was aware that colonoscopy for tomorrow 04/08/23 will be cancelled
--- NOTE | 2023-04-07 23:04 | NUR ---
PLACE A CALL TO JENNIE RAMIREZ REGARDING PATIENT TRANSFER TO [facility] AND REFUSAL TO BE TRANSFERRED. PER JENNIE SHE IS COMING TO [facility] TO TALK TO HER AUNT.
--- NOTE | 2023-04-07 23:24 | NUR ---
Texted Dr Crockett, told him that pt refused to go to [facility]. Will proceed with colonoscopy tomorrow
--- NOTE | 2023-04-07 23:43 | NUR ---
Called [facility] [phone] and spoke with Elena; told her that pt refused to go to [facility]. She stated that she will notify the Cider Maker
[2023-04-08] MEDS ORDERED: bisacodyL 5 MG TABEC PO ONE ×2 (00:45)
[2023-04-08 04:00] VITALS: BP 134/55
[2023-04-08] MEDS: LACTATED RINGERS 1,000 ML IV SCH ×2 (06:35→16:35)
[2023-04-08] MEDS ORDERED: bisacodyL 5 MG TABEC PO SCH (07:00)
[2023-04-08 08:00] VITALS: BP 132/66
[2023-04-08] MEDS ORDERED: SODIUM PHOSPHATE 118 ML ENEM RC PRN (08:00)
[2023-04-08 08:22] LABS: PROTHROMBIN TIME 9.5 secs (10.8-13.4)
[2023-04-08] MEDS: ENOXAPARIN 40 MG/0.4 ML SYR SUBQ SCH (09:00)
[2023-04-08 09:22] LABS: BASOPHILS % (AUTO) 1.1 % (0.0-2.0); EOSINOPHILS # (AUTO) 0.1 K/uL (0-0.4); HEMATOCRIT 23.1 % (36-48); HEMOGLOBIN 7.2 g/dL (12.0-16.0); LYMPHOCYTES # (AUTO) 1.8 K/uL (2.5-16.5); LYMPHOCYTES % (AUTO) 45.9 % (20.5-51.1); MEAN CORPUSCULAR HEMOGLOBIN 23 pg (27-31); MEAN CORPUSCULAR HGB CONC 31 g/dL (33-37); MEAN CORPUSCULAR VOLUME 73.4 fL (80-94); MONOCYTES # (AUTO) 0.3 K/uL (0.8-1.0); MONOCYTES % (AUTO) 7.7 % (1.7-9.3); NEUTROPHILS # (AUTO) 1.6 K/uL (1.8-7.7); NEUTROPHILS % (AUTO) 42.3 % (42.2-75.2); PLATELET COUNT (AUTO) 447 K/uL (140-450); RED BLOOD CELL COUNT(AUTO) 3.15 MIL/uL (4.20-5.40); RED CELL DISTRIBUTION WIDTH 16.1 % (11.6-13.7); WHITE BLOOD COUNT (AUTO) 3.9 K/uL (4.8-10.8)
[2023-04-08 09:28] LABS: PROTHROMBIN TIME 9.7 secs (10.8-13.4)
[2023-04-08] MEDS ORDERED: LIDOCAINE 2% 1000 MG/50 ML VIAL INJ ONE (10:58)
[2023-04-08] MEDS ORDERED: fentaNYL citrate 0.05 MG/ML VIAL ONE (10:58)
[2023-04-08] MEDS ORDERED: MIDAZOLAM 2 MG/2 ML VIAL ONE (10:58)
[2023-04-08] MEDS ORDERED: FLUMAZENIL 0.5 MG/5 ML VIAL IVP ONE (11:03)
[2023-04-08] MEDS ORDERED: NALOXONE 0.4 MG/ML VIAL ONE (11:03)
[2023-04-08 15:06] LABS: HEPATITIS B SURFACE ANTIGEN Negative (Negative); HEPATITIS C AB Non Reactive (Non Reactive)
--- NOTE | 2023-04-08 15:25 | NUR ---
AROUND [address] GUIDED LIVER BIOPSY PROCEDURE. DR. MCALLISTER CHECK PATIENT'S STATUS REGARDING TO BOWEL PREPARATION FOR COLONOSCOPY; AROUND 1400, PATIENT TRANSFER TO OR FOR COLONOSCOPY. AT THIS POINT OF TIME. PATIENT'S CARE TRANSFER TO [facility] UNDER DR. HARRISON WHO IS HER PCP AT THIS HOSPITALIZATION. CT CHEST/ABDOMEN/PELVIS W/ CONTRAST CONSENT CHECK LIST READY TO GO. WILL CONTINUE TO MONITOR. Addendum: 04/08/23 at 1807 by Tammy Barahona RN PATIENT RETURN FROM COLONOSCOPY IN STABLE CONDITION. PER OR NURSE THAT PATIENT HAD ONE LITER LR IN OR, AND COLONOSCOPY WAS DONE W/ ANESTHESIA. SURGEON FOUND IN ASCENDING COLON MASS/POSSIBLE COLON CANCER, ONE POLYP REMOVE. AFTER PATIENT RETURN UNIT, NURSE CALL CT AND SHORTLY, CT W/ CONTRAST FOR ABDOMEN/PELVIS/CHEST IS PROCEEDING. WILL CONTINUE TO MONITOR. Addendum: 04/08/23 at 1903 by Tammy Barahona RN PATIENT RETURN FROM CT CHEST/ABDOMEN/PULVIS W/ CONTRAST WITH NO ACUTE DISTRESS NOTE, DINNER FULL LIQUID DIET AT TABLE. PATIENT ASKING FOR CRACKERS. NURSE EXPLAIN THAT PATIENT JUST HAD A LOT PROCEDURE DONE TODAY. LET GI SYSTEM HAVE A BREAK AT THIS TIME. WILL CONTINUE TO MONITOR Addendum: 04/08/23 at 1941 by Tammy Barahona RN ENDORSE PATIENT IN STABLE CONDITION TO PM SHIFT NURSE EVEN THOUGH THAT NURSE INFORM DR. BEVERLY THAT PATIENT'S 04/07/2023 MORNING LAB SHOWS POTASSIUM=3.3 & MAGNESIUM=1.6 BUT STILL NO STANDARD ORDER. LR CURRENT INFUSING AT 100ML/HR VIA LAC.
[2023-04-08] MEDS ORDERED: PROPOFOL 200 MG/20 ML VIAL IV ONE ×4 (16:22→17:00)
[2023-04-08] MEDS ORDERED: LABETALOL 20 MG/4 ML VIAL IVP PRN (17:14)
[2023-04-08] MEDS ORDERED: hydrALAZINE 20 MG/ML VIAL IVP PRN (17:14)
[2023-04-08] MEDS ORDERED: LACTATED RINGERS 1,000 ML IV SCH (17:15)
[2023-04-08] MEDS ORDERED: ONDANSETRON 4 MG/2 ML VIAL IVP PRN (17:15)
--- NOTE | 2023-04-08 19:15 | NUR ---
RECEIVED PT FROM MORNING SHIFT NURSE. PT IS AOX4, AMBULATORY, ABLE TO VERBALIZE NEEDS AND ABLE TO FOLLOW COMMANDS. PT IS ON ROOM AIR AND ON FULL LIQUID DIET. PT HAS BEDSIDE COMMODE. PT HAS IV ON LEFT UPPER ARM GAUGE 20, RUNNING WITH LR AT 100ML/HR. PT SKIN IS INTACT. PT DENIES PAIN AT THIS TIME. NO S/S OF RESPIRATORY DISTRESS NOTED. ALL SAFETY MEASURES IMPLEMENTED. BED IN LOW POSITION, BED WHEELS ON LOCK AND CALL LIGHT WITHIN REACH.
--- NOTE | 2023-04-08 19:32 | NUR ---
NOTIFIED DR. MEEKS REGARDING PT'S K-3.3 AND MAGNESIUM OF 1.[address] MEEKS ORDER 40 MEQ K AND 2G IV MAGNESIUM. ORDER WAS MADE AND CARRIED OUT.
[2023-04-08 20:00] VITALS: BP 137/64
[2023-04-08] MEDS ORDERED: MAG SULF 2000 MG/WATER PREMIX 50 ML IV SCH (21:05)
[2023-04-08] MEDS ORDERED: POTASSIUM CHLORIDE 10 MEQ TABER PO SCH (21:05)
--- NOTE | 2023-04-08 21:48 | NUR ---
K-DUR 40MEQ AND 2G IV MAG RIDER WAS GIVEN TO PT PER MD ORDER. ALL SAFETY MEASURES IMPLEMENTED. BED IN LOW POSITION, BED WHEELS ON LOCK AND CALL LIGHT WITHIN REACH.
--- NOTE | 2023-04-08 22:10 | NUR ---
RECEIVED CALL FROM LAB REGARDING PT IS POSITIVE ON URINE E-COLI.
--- NOTE | 2023-04-08 22:11 | NUR ---
NOTIFIED DR. MEEKS REGARDING PT IS POSITIVE ON URINE E-COLI. DOCTOR ORDER ROCEPHIN 1G EVERY 24 HRS.
[2023-04-08] MEDS ORDERED: cefTRIAXone 1,000 MG VIAL ONE (23:24)
[2023-04-09] MEDS: HYDROcodone/APAP 5/325 MG 1 TAB TAB PO PRN (00:36)
--- NOTE | 2023-04-09 00:36 | NUR ---
PRN PAIN MEDICATION WAS GIVEN TO PT DUE TO ABDOMINAL PAIN WITH PAIN SCALE OF 6/10. ALL SAFETY MEASURES IMPLEMENTED. BED IN LOW POSITION, BED WHEELS ON LOCK AND CALL LIGHT WITHIN REACH.
--- NOTE | 2023-04-09 02:00 | NUR ---
IV WAS INFILTRATED. INSERTED NEW IV ON RIGHT FOREARM GAUGE 22. IV IS NOW PATENT AND INTACT. ALL SAFETY MEASURES IMPLEMENTED. BED IN LOW POSITION, BED WHEELS ON LOCK AND CALL LIGHT WITHIN REACH.
[2023-04-09] MEDS: LACTATED RINGERS 1,000 ML IV SCH (02:38)
[2023-04-09 04:00] VITALS: BP 125/62
--- NOTE | 2023-04-09 04:00 | NUR ---
PT WAS GIVEN TEA AND APPLE JUICE PER MD ORDER. NO COMPLAIN OF PAIN. NO S/S OF RESPIRATORY DISTRESS NOTED.
[2023-04-09 06:39] LABS: ALBUMIN 2.2 g/dL (3.4-5.0); ANION GAP 7.3 (8-16); CARBON DIOXIDE 30.3 mmol/L (21-32); CREATININE 0.3 mg/dL (0.6-1.3); PHOSPHORUS 3.8 mg/dL (2.5-4.9); POTASSIUM 3.6 mmol/L (3.5-5.1); TOTAL BILIRUBIN 0.1 mg/dL (0.0-1.0)
[2023-04-09 06:53] LABS: BASOPHILS % (AUTO) 0.7 % (0.0-2.0); EOSINOPHILS # (AUTO) 0.1 K/uL (0-0.4); EOSINOPHILS % (AUTO) 2.1 % (0.0-4.0); HEMATOCRIT 24.5 % (36-48); HEMOGLOBIN 7.7 g/dL (12.0-16.0); LYMPHOCYTES # (AUTO) 2.1 K/uL (2.5-16.5); LYMPHOCYTES % (AUTO) 40.7 % (20.5-51.1); MEAN CORPUSCULAR HEMOGLOBIN 23 pg (27-31); MEAN CORPUSCULAR HGB CONC 32 g/dL (33-37); MONOCYTES # (AUTO) 0.4 K/uL (0.8-1.0); NEUTROPHILS # (AUTO) 2.6 K/uL (1.8-7.7); NEUTROPHILS % (AUTO) 49.5 % (42.2-75.2); PLATELET COUNT (AUTO) 481 K/uL (140-450); RED BLOOD CELL COUNT(AUTO) 3.35 MIL/uL (4.20-5.40); RED CELL DISTRIBUTION WIDTH 16.4 % (11.6-13.7); WHITE BLOOD COUNT (AUTO) 5.2 K/uL (4.8-10.8)
--- NOTE | 2023-04-09 07:20 | NUR ---
PT IS STABLE. ENDORSED PT TO MORNING SHFT NURSE FOR CONTINUITY OF CARE.
--- NOTE | 2023-04-09 07:30 | NUR ---
RECEIVED REPORT FROM SWEET PICKLE MAKER NURSE, POC DISCUSSED, PT CURRENTLY RESTING WITH CHEST RISING AND FALLING, NO ACUTE S/S OF DISTRESS, ALL SAFETY MEASURES IN PLACE, CALL LIGHT WITHIN REACH.
[2023-04-09 09:07] LABS: AFP (TUMOR MARKER) <1.8 ng/mL (0.0-9.2)
[2023-04-09] MEDS: ENOXAPARIN 40 MG/0.4 ML SYR SUBQ SCH (09:32)
[2023-04-09 12:04] VITALS: BP 125/62
[2023-04-09] MEDS ORDERED: HYDR-5080 PO (18:26)
== END 2023-04-09 12:30 | disposition home or self-care (01) | DRG 240 ==
LOC: MED 08:07 → MMU 14:37 → MTU 16:19
PROVIDERS: ADMIT Student in an Organized Health Care Education/Training Program; ATTEND Student in an Organized Health Care Education/Training Program
PROC: 0FB03ZX Excision of Liver, Percutaneous Approach, Diagnostic (ICD-10-PCS; 2023-04-08)
PROC: 0DBK8ZX Excision of Ascending Colon, Via Natural or Artificial Opening Endoscopic, Diagnostic (ICD-10-PCS; principal; 2023-04-08 14:00)
PROC: 0DBL8ZZ Excision of Transverse Colon, Via Natural or Artificial Opening Endoscopic (ICD-10-PCS; 2023-04-08 14:00)
DX: C18.9 Malignant neoplasm of colon, unspecified (principal); K56.609 Unspecified intestinal obstruction, unspecified as to partial versus complete obstruction; E43 Unspecified severe protein-calorie malnutrition; C78.7 Secondary malignant neoplasm of liver and intrahepatic bile duct; D64.9 Anemia, unspecified; F17.210 Nicotine dependence, cigarettes, uncomplicated; G89.29 Other chronic pain; K21.9 Gastro-esophageal reflux disease without esophagitis; M54.9 Dorsalgia, unspecified; N39.0 Urinary tract infection, site not specified; K59.00 Constipation, unspecified; Z68.20 Body mass index [BMI] 20.0-20.9, adult; Z79.899 Other long term (current) drug therapy
CPT/HCPCS: 36415; 47000; 71270; 74018; 80048; 80053; 81001; 82105; 82378; 83735; 84100; 85025; 85610; 85730; 86301; 86804; 87081; 87086; 87340; 87522; J0696; J1650; J1885; J2001; J2250; J2270; J2310; J2704; J3010; J3475; J3490; J7060; Q9967

== ENCOUNTER 2023-04-14 07:33 | Emergency (ER) | payer MEDICAID ==
[~2023-04-14] VITALS: Ht 167.6 cm; Wt 61.2 kg
[~2023-04-14 07:33] MED LIST changes: -CEPH-588 PO; -CIPR250T6 PO; +HYDR-5080 PO; -IBUP-2213 PO; -POLY17PD72 PO
[2023-04-14 07:40] VITALS: BP 122/76
[2023-04-14] MEDS ORDERED: MORPHINE SULFATE 4 MG/ML SYR IM ONE (07:55)
[2023-04-14] MEDS ORDERED: MORPHINE SULFATE 4 MG/ML SYR IVP ONE (08:05)
[2023-04-14] MEDS ORDERED: ONDANSETRON 4 MG/2 ML VIAL IVP ONE (08:05)
[2023-04-14] MEDS ORDERED: NACL 0.9% 1,000 ML IV SCH (08:10)
--- NOTE | 2023-04-14 08:15 | NUR ---
DR MARCOS ASSESSING PATIENT
--- NOTE | 2023-04-14 08:20 | NUR ---
PATIENT WHEELED TO [facility] ON [facility]
[2023-04-14 08:24] LABS: BASOPHILS # (AUTO) 0.1 K/uL (0.00-0.22); EOSINOPHILS # (AUTO) 0.1 K/uL (0-0.4); HEMATOCRIT 27.1 % (36-48); HEMOGLOBIN 8.6 g/dL (12.0-16.0); LYMPHOCYTES # (AUTO) 1.5 K/uL (2.5-16.5); LYMPHOCYTES % (AUTO) 22.2 % (20.5-51.1); MEAN CORPUSCULAR HEMOGLOBIN 23 pg (27-31); MEAN CORPUSCULAR HGB CONC 32 g/dL (33-37); MEAN CORPUSCULAR VOLUME 72.4 fL (80-94); MONOCYTES # (AUTO) 0.3 K/uL (0.8-1.0); MONOCYTES % (AUTO) 4.9 % (1.7-9.3); NEUTROPHILS # (AUTO) 4.6 K/uL (1.8-7.7); NEUTROPHILS % (AUTO) 69.9 % (42.2-75.2); PLATELET COUNT (AUTO) 602 K/uL (140-450); RED BLOOD CELL COUNT(AUTO) 3.74 MIL/uL (4.20-5.40); RED CELL DISTRIBUTION WIDTH 16.6 % (11.6-13.7); WHITE BLOOD COUNT (AUTO) 6.6 K/uL (4.8-10.8)
--- NOTE | 2023-04-14 08:34 | NUR ---
PT WHEELED BACK TO BED [address] SCAN
--- NOTE | 2023-04-14 08:36 | NUR ---
TAHIR RUSSELL [phone] CELL PHONE
[2023-04-14 08:38] LABS: ALBUMIN 2.9 g/dL (3.4-5.0); ANION GAP 11.2 (8-16); CARBON DIOXIDE 28.1 mmol/L (21-32); CREATININE 0.4 mg/dL (0.6-1.3); POTASSIUM 3.3 mmol/L (3.5-5.1); TOTAL BILIRUBIN 0.2 mg/dL (0.0-1.0)
--- NOTE | 2023-04-14 10:03 | NUR ---
Called TAHIR RUSSELL [phone] CELL PHONE to arrange for pick up driver. left message
[2023-04-14] MEDS ORDERED: ONDA8TAB87 PO (10:34)
--- NOTE | 2023-04-14 10:36 | NUR ---
IV removed, catheter intact and site benign. Applied folded 4x4 gauze and tape to stop bleeding.
[2023-04-14] MEDS ORDERED: HYDR-5191 PO (10:44)
[2023-04-14 10:45] VITALS: BP 122/76
== END 2023-04-14 10:45 | disposition home or self-care (01) ==
LOC: MED 07:33
DX: C18.9 Malignant neoplasm of colon, unspecified (principal); R11.2 Nausea with vomiting, unspecified; Z79.899 Other long term (current) drug therapy; Z90.49 Acquired absence of other specified parts of digestive tract
CPT/HCPCS: 74176; 80053; 83690; 85025; 96374; 96375; 99285; J2270; J2405

== ENCOUNTER 2023-04-16 13:03 | Emergency (ER) | payer MEDICAID ==
[~2023-04-16] VITALS: Ht 162.6 cm; Wt 68.0 kg
[~2023-04-16 13:03] MED LIST changes: +HYDR-5191 PO; +ONDA8TAB87 PO
[2023-04-16 13:17] VITALS: BP 128/74
[2023-04-16] MEDS ORDERED: MORPHINE SULFATE 4 MG/ML SYR IVP ONE (13:25)
[2023-04-16] MEDS ORDERED: ONDANSETRON 4 MG/2 ML VIAL IVP ONE (13:25)
--- NOTE | 2023-04-16 13:30 | NUR ---
BIB WHEELCHAIR TO ER BED 1
--- NOTE | 2023-04-16 13:33 | NUR ---
RECEIVED REPORT FROM SHAY RDZ. PATIENT REPORTS HAVING ABDOMINAL PAIN FOR THE LAST 2 HOURS. PATIENT WOKE UP FINE. WAITING FOR MD ORDERS.
[2023-04-16 14:08] LABS: BASOPHILS # (AUTO) 0.1 K/uL (0.00-0.22); EOSINOPHILS # (AUTO) 0.1 K/uL (0-0.4); MEAN CORPUSCULAR HGB CONC 32 g/dL (33-37); MONOCYTES # (AUTO) 0.4 K/uL (0.8-1.0); RED BLOOD CELL COUNT(AUTO) 4.08 MIL/uL (4.20-5.40)
[2023-04-16 14:12] LABS: ALBUMIN 3.4 g/dL (3.4-5.0); ANION GAP 14.2 (8-16); CARBON DIOXIDE 29.3 mmol/L (21-32); CREATININE 0.5 mg/dL (0.6-1.3); POTASSIUM 3.5 mmol/L (3.5-5.1); TOTAL BILIRUBIN 0.3 mg/dL (0.0-1.0)
[2023-04-16 14:22] LABS: BASOPHILS % (AUTO) 0.8 % (0.0-2.0); EOSINOPHILS % (AUTO) 0.7 % (0.0-4.0); HEMATOCRIT 29.5 % (36-48); HEMOGLOBIN 9.3 g/dL (12.0-16.0); LYMPHOCYTES # (AUTO) 1.8 K/uL (2.5-16.5); LYMPHOCYTES % (AUTO) 19.6 % (20.5-51.1); MEAN CORPUSCULAR HEMOGLOBIN 23 pg (27-31); MEAN CORPUSCULAR VOLUME 72.3 fL (80-94); MONOCYTES % (AUTO) 3.9 % (1.7-9.3); PLATELET COUNT (AUTO) 685 K/uL (140-450); RED CELL DISTRIBUTION WIDTH 16.2 % (11.6-13.7); WHITE BLOOD COUNT (AUTO) 9.3 K/uL (4.8-10.8)
--- NOTE | 2023-04-16 17:05 | NUR ---
pt ambulatory to bathroom w steady gait
[2023-04-16 17:12] LABS: APPEARANCE,URINE CLEAR (CLEAR); BILIRUBIN,URINE NEGATIVE (NEGATIVE); BLOOD, URINE NEGATIVE (NEGATIVE); COLOR,URINE YELLOW (YELLOW); LEUKOCYTE ESTERASE ,URINE NEGATIVE (NEGATIVE); NITRITE, URINE NEGATIVE (NEGATIVE); UGLUCOSE NEGATIVE (NEGATIVE)
--- NOTE | 2023-04-16 17:15 | NUR ---
unable to obtain stool sample, christy stratton aware.
[2023-04-16] MEDS ORDERED: MIRABULK PO (17:21)
[2023-04-16] MEDS ORDERED: MAGN296S70 PO (17:21)
--- NOTE | 2023-04-16 17:34 | NUR ---
Patient discharged with v/s stable. Written and verbal after care instructions given and explained. Patient alert, oriented and verbalized understanding of instructions. Ambulatory with steady gait. All questions addressed prior to discharge. ID band removed. Patient advised to follow up with PMD. Rx of mag citrate, miralax given. Patient educated on indication of medication including possible reaction and side effects. Opportunity to ask questions provided and answered.
[2023-04-16 17:44] VITALS: BP 116/55
== END 2023-04-16 17:34 | disposition home or self-care (01) ==
LOC: MED 13:03
DX: R10.9 Unspecified abdominal pain (principal); R11.2 Nausea with vomiting, unspecified; Z79.899 Other long term (current) drug therapy
CPT/HCPCS: 36415; 74022; 80053; 81003; 83690; 85025; 96374; 96375; 99284; J2270; J2405

== ENCOUNTER 2023-05-25 07:40 | Emergency (ER) | payer MEDICAID ==
[~2023-05-25] VITALS: Ht 167.6 cm; Wt 81.6 kg
[~2023-05-25 07:40] MED LIST changes: +MAGN296S70 PO; +MIRABULK PO
[2023-05-25 07:52] VITALS: BP 123/57; PULSE 77; RESP 18; TEMP 97; O2SAT 98
--- NOTE | 2023-05-25 08:12 | NUR ---
PT AWAITING TO BE SEEN BY MD. NO SOB NOTED. ABLE TO SPEAK IN FULL COMPLETE SENTENCES. CONTINUES TO SPIT IN EMESIS BAG. PT ON MONITOR. O2 SAT 100%. VS STABLE.
[2023-05-25] MEDS ORDERED: ONDANSETRON 4 MG/2 ML VIAL IVP ONE (08:20)
--- NOTE | 2023-05-25 08:27 | NUR ---
LAB AT BS DRAWING PT.
[2023-05-25 08:35] LABS: BASOPHILS # (AUTO) 0.1 K/uL (0.00-0.22); BASOPHILS % (AUTO) 2.3 % (0.0-2.0); EOSINOPHILS # (AUTO) 0.2 K/uL (0-0.4); EOSINOPHILS % (AUTO) 3.2 % (0.0-4.0); HEMATOCRIT 20.4 % (36-48); LYMPHOCYTES # (AUTO) 1.9 K/uL (2.5-16.5); LYMPHOCYTES % (AUTO) 36.6 % (20.5-51.1); MEAN CORPUSCULAR HEMOGLOBIN 21 pg (27-31); MEAN CORPUSCULAR HGB CONC 31 g/dL (33-37); MEAN CORPUSCULAR VOLUME 67.9 fL (80-94); MONOCYTES # (AUTO) 0.4 K/uL (0.8-1.0); MONOCYTES % (AUTO) 6.6 % (1.7-9.3); NEUTROPHILS # (AUTO) 2.7 K/uL (1.8-7.7); NEUTROPHILS % (AUTO) 51.3 % (42.2-75.2); PLATELET COUNT (AUTO) 581 K/uL (140-450); RED CELL DISTRIBUTION WIDTH 17.3 % (11.6-13.7); WHITE BLOOD COUNT (AUTO) 5.3 K/uL (4.8-10.8)
[2023-05-25 08:44] LABS: HEMOGLOBIN 6.2 g/dL (12.0-16.0)
[2023-05-25 08:54] LABS: ALBUMIN 2.7 g/dL (3.4-5.0); CARBON DIOXIDE 26.7 mmol/L (21-32); CREATININE 0.5 mg/dL (0.6-1.3); POTASSIUM 3.7 mmol/L (3.5-5.1); TOTAL BILIRUBIN 0.1 mg/dL (0.0-1.0)
--- NOTE | 2023-05-25 11:00 | NUR ---
PT INFORMED THE DOCTOR THAT THE PIECE OF MEAT CLEARED HER THROAT. PT IS NO SRINIVAS TO SWALLOW SALIVA AND CLEAR HER THROAT. PT SPEAKING IN FULL SENTENCES AND CONVERSING WITH HER .
[2023-05-25 11:22] LABS: PROTHROMBIN TIME 9.2 secs (10.8-13.4)
[2023-05-25] MEDS ORDERED: FERR325E14 PO (11:23)
--- NOTE | 2023-05-25 11:33 | NUR ---
Patient discharged with v/s stable. Written and verbal after care instructions and labs given and explained. Patient alert, oriented and verbalized understanding of instructions. AMB out with steady gait. All questions addressed prior to discharge. ID band removed. Patient advised to follow up with PMD. Rx of FERROUS SULFATE given. Patient educated on indication of medication including possible reaction and side effects. Opportunity to ask questions provided and answered. PT SIGNED AMA FORM. PT STATED, SHE IS GOING TO F/U WITH HER ONCOLOGIST AND IF NEEDED SHE WILL RETURN TOMORROW.
[2023-05-25 11:34] VITALS: BP 111/75; PULSE 86; RESP 20; TEMP 97.5; O2SAT 98
== END 2023-05-25 11:33 | disposition home or self-care (01) ==
LOC: MED 07:40
DX: D64.9 Anemia, unspecified (principal); C18.9 Malignant neoplasm of colon, unspecified; R11.10 Vomiting, unspecified; Z79.899 Other long term (current) drug therapy; Z85.038 Personal history of other malignant neoplasm of large intestine; Z98.890 Other specified postprocedural states
CPT/HCPCS: 36415; 71045; 80053; 85025; 85610; 85730; 86886; 86900; 86901; 86920; 96374; 99291; J2405; 99285

== ENCOUNTER 2023-07-06 15:53 | Emergency (ER) | payer MEDICAID ==
[~2023-07-06] VITALS: Ht 165.1 cm; Wt 63.5 kg
[~2023-07-06 15:53] MED LIST changes: +FERR325E14 PO
[2023-07-06 16:09] VITALS: BP 134/89; PULSE 77; RESP 18; TEMP 98.5; O2SAT 100
[2023-07-06 16:43] LABS: BASOPHILS % (AUTO) 0.6 % (0.0-2.0); EOSINOPHILS # (AUTO) 0.1 K/uL (0-0.4); EOSINOPHILS % (AUTO) 1.3 % (0.0-4.0); HEMATOCRIT 25.4 % (36-48); HEMOGLOBIN 7.7 g/dL (12.0-16.0); LYMPHOCYTES % (AUTO) 15.2 % (20.5-51.1); MEAN CORPUSCULAR HEMOGLOBIN 20 pg (27-31); MEAN CORPUSCULAR HGB CONC 30 g/dL (33-37); MEAN CORPUSCULAR VOLUME 65.3 fL (80-94); MONOCYTES # (AUTO) 0.5 K/uL (0.8-1.0); MONOCYTES % (AUTO) 6.8 % (1.7-9.3); NEUTROPHILS # (AUTO) 5.1 K/uL (1.8-7.7); NEUTROPHILS % (AUTO) 76.1 % (42.2-75.2); PLATELET COUNT (AUTO) 643 K/uL (140-450); RED BLOOD CELL COUNT(AUTO) 3.89 MIL/uL (4.20-5.40); RED CELL DISTRIBUTION WIDTH 19.1 % (11.6-13.7); WHITE BLOOD COUNT (AUTO) 6.7 K/uL (4.8-10.8)
[2023-07-06 17:06] LABS: ALBUMIN 3.1 g/dL (3.4-5.0); ANION GAP 12.2 (8-16); CALCIUM 8.6 mg/dL (8.5-10.1); CARBON DIOXIDE 27.9 mmol/L (21-32); CREATININE 0.7 mg/dL (0.6-1.3); POTASSIUM 4.1 mmol/L (3.5-5.1); TOTAL BILIRUBIN 0.5 mg/dL (0.0-1.0); TOTAL PROTEIN, SERUM 7.7 g/dL (6.4-8.2)
[2023-07-06] MEDS ORDERED: ONDA8TAB87 PO (18:58)
[2023-07-06] MEDS ORDERED: OMEP40EC24 PO (18:58)
[2023-07-06 19:59] VITALS: BP 133/82; PULSE 77; RESP 18; TEMP 98.5; O2SAT 100
== END 2023-07-06 19:59 | disposition home or self-care (01) ==
LOC: MED 15:53
DX: R10.13 Epigastric pain (principal); R11.2 Nausea with vomiting, unspecified; R68.83 Chills (without fever); Z85.038 Personal history of other malignant neoplasm of large intestine; Z79.899 Other long term (current) drug therapy
CPT/HCPCS: 36415; 80053; 83690; 85025; 99283

== ENCOUNTER 2023-08-06 03:50 | Emergency (ER) | payer MEDICAID ==
[~2023-08-06] VITALS: Ht 170.2 cm; Wt 70.3 kg
[~2023-08-06 03:50] MED LIST changes: +OMEP40EC24 PO
[2023-08-06 04:07] VITALS: BP 123/58; PULSE 74; RESP 16; TEMP 97.5; O2SAT 100
== END 2023-08-06 05:04 | disposition left against medical advice (07) ==
LOC: MED 03:50
DX: R11.0 Nausea (principal); Z53.21 Procedure and treatment not carried out due to patient leaving prior to being seen by health care provider
CPT/HCPCS: 99281

== ENCOUNTER 2023-09-25 09:12 | Emergency (ER) | payer MEDICAID ==
[~2023-09-25] VITALS: Ht 160 cm; Wt 68.5 kg
[2023-09-25 09:26] VITALS: BP 108/63; PULSE 88; RESP 22; TEMP 98.7; O2SAT 98
[2023-09-25 10:03] VITALS: BP 104/50; TEMP 98.7
[2023-09-25] MEDS ORDERED: ALBUTEROL 0.083% 2.5 MG/3 ML NEBU INH ONE (10:15)
[2023-09-25] MEDS ORDERED: KETOROLAC 30 MG/ML VIAL IM ONE (10:15)
[2023-09-25] MEDS ORDERED: ONDANSETRON 4 MG ODT PO ONE (10:15)
[2023-09-25 10:43] VITALS: PULSE 72; RESP 20; O2SAT 98
[2023-09-25 10:48] LABS: FLU A ANTIGEN negative (NEGATIVE); FLU B ANTIGEN NEGATIVE (NEGATIVE)
[2023-09-25] MEDS ORDERED: CEFP200T20 PO (11:33)
[2023-09-25] MEDS ORDERED: AZIT250T4 PO (11:33)
[2023-09-25] MEDS ORDERED: BENZ200C4 PO (11:33)
== END 2023-09-25 11:36 | disposition home or self-care (01) ==
LOC: MED 09:12
DX: J18.9 Pneumonia, unspecified organism (principal); Z20.822 Contact with and (suspected) exposure to COVID-19; Z79.899 Other long term (current) drug therapy
CPT/HCPCS: 71045; 87426; 87804; 94640; 96372; 99284; J1885; J7613; Q0092; Q0162

== ENCOUNTER 2024-01-10 03:48 | Emergency (ER) | payer MEDICAID ==
[~2024-01-10] VITALS: Ht 167.6 cm; Wt 53.5 kg
[~2024-01-10 03:48] MED LIST changes: +AZIT250T4 PO; +BENZ200C4 PO; +CEFP200T20 PO
[2024-01-10 04:15] VITALS: BP 152/76; PULSE 74; RESP 16; TEMP 97.7; O2SAT 98
[2024-01-10 04:45] VITALS: BP 118/58; PULSE 74; RESP 12; TEMP 98; O2SAT 100
[2024-01-10] MEDS: ONDANSETRON 4 MG ODT PO ONE (06:26)
[2024-01-10] MEDS: MORPHINE SULFATE 4 MG/ML SYR IM ONE (06:26)
[2024-01-10 07:03] LABS: BASOPHILS # (AUTO) 0.1 K/uL (0.00-0.22); BASOPHILS % (AUTO) 1.5 % (0.0-2.0); EOSINOPHILS # (AUTO) 0.3 K/uL (0-0.4); EOSINOPHILS % (AUTO) 4.5 % (0.0-4.0); HEMATOCRIT 22.7 % (36-48); HEMOGLOBIN 7.1 g/dL (12.0-16.0); LYMPHOCYTES # (AUTO) 2.3 K/uL (2.5-16.5); LYMPHOCYTES % (AUTO) 38.4 % (20.5-51.1); MEAN CORPUSCULAR HEMOGLOBIN 19 pg (27-31); MEAN CORPUSCULAR HGB CONC 31 g/dL (33-37); MEAN CORPUSCULAR VOLUME 62.2 fL (80-94); MONOCYTES # (AUTO) 0.4 K/uL (0.8-1.0); MONOCYTES % (AUTO) 7.4 % (1.7-9.3); NEUTROPHILS # (AUTO) 2.9 K/uL (1.8-7.7); NEUTROPHILS % (AUTO) 48.2 % (42.2-75.2); PLATELET COUNT (AUTO) 447 K/uL (140-450); RED BLOOD CELL COUNT(AUTO) 3.65 MIL/uL (4.20-5.40); RED CELL DISTRIBUTION WIDTH 29.2 % (11.6-13.7)
[2024-01-10 07:05] LABS: ALBUMIN 2.6 g/dL (3.4-5.0); ANION GAP 12.4 (8-16); CALCIUM 8.7 mg/dL (8.5-10.1); CARBON DIOXIDE 26.3 mmol/L (21-32); CREATININE 0.5 mg/dL (0.6-1.3); POTASSIUM 3.7 mmol/L (3.5-5.1); TOTAL BILIRUBIN 0.2 mg/dL (0.0-1.0); TOTAL PROTEIN, SERUM 7.5 g/dL (6.4-8.2)
== END 2024-01-10 07:24 | disposition left against medical advice (07) ==
LOC: MED 03:48
DX: R10.30 Lower abdominal pain, unspecified (principal); R11.2 Nausea with vomiting, unspecified; D53.9 Nutritional anemia, unspecified; M19.90 Unspecified osteoarthritis, unspecified site; Z85.038 Personal history of other malignant neoplasm of large intestine; Z79.899 Other long term (current) drug therapy
CPT/HCPCS: 36415; 80053; 83690; 85025; 96372; 99283; J2270; Q0162

== ENCOUNTER 2024-03-26 21:20 | Emergency (ER) | payer MEDICAID ==
[~2024-03-26 21:20] MED LIST changes: +HYDR-5071 PO; -HYDR-5191 PO
== END 2024-03-26 21:44 | disposition left against medical advice (07) ==
LOC: MED 21:20
DX: M79.10 Myalgia, unspecified site (principal); Z53.21 Procedure and treatment not carried out due to patient leaving prior to being seen by health care provider

== ENCOUNTER 2024-04-03 14:00 | Emergency (ER) | payer MEDICAID ==
[~2024-04-03] VITALS: Ht 167.6 cm; Wt 68.0 kg
[2024-04-03 14:08] VITALS: BP 108/53; PULSE 87; RESP 18; TEMP 97.8; TEMP 98; O2SAT 100
[2024-04-03 14:51] LABS: BASOPHILS # (AUTO) 0.1 K/uL (0.00-0.22); BASOPHILS % (AUTO) 1.9 % (0.0-2.0); EOSINOPHILS # (AUTO) 0.3 K/uL (0-0.4); HEMATOCRIT 24.6 % (36-48); HEMOGLOBIN 7.4 g/dL (12.0-16.0); LYMPHOCYTES # (AUTO) 1.8 K/uL (2.5-16.5); MEAN CORPUSCULAR HEMOGLOBIN 18 pg (27-31); MEAN CORPUSCULAR HGB CONC 30 g/dL (33-37); MEAN CORPUSCULAR VOLUME 59.6 fL (80-94); MONOCYTES # (AUTO) 0.7 K/uL (0.8-1.0); MONOCYTES % (AUTO) 11.1 % (1.7-9.3); NEUTROPHILS # (AUTO) 3.1 K/uL (1.8-7.7); PLATELET COUNT (AUTO) 583 K/uL (140-450); RED BLOOD CELL COUNT(AUTO) 4.13 MIL/uL (4.20-5.40); WHITE BLOOD COUNT (AUTO) 5.9 K/uL (4.8-10.8)
[2024-04-03 15:08] LABS: ANION GAP 12.2 (8-16); CALCIUM 8.6 mg/dL (8.5-10.1); CARBON DIOXIDE 27.8 mmol/L (21-32); CREATININE 0.5 mg/dL (0.6-1.3)
[2024-04-03 15:16] LABS: ALANINE AMINOTRANSFERASE 14 U/L (12-78); ALBUMIN 2.6 g/dL (3.4-5.0); ALKALINE PHOSPHATASE 90 U/L (50-136); ASPARTATE AMINOTRANSFERASE 15 U/L (15-37); BILIRUBIN,DIRECT 0.1 mg/dL (0.0-0.3); CREATINE KINASE, TOTAL 34 U/L (26-192); TOTAL BILIRUBIN 0.2 mg/dL (0.0-1.0); TOTAL PROTEIN, SERUM 6.7 g/dL (6.4-8.2)
[2024-04-03] MEDS: ACETAMINOPHEN 325 MG TAB PO ONE (16:06)
[2024-04-03 16:21] LABS: APPEARANCE,URINE CLEAR (CLEAR); BILIRUBIN,URINE NEGATIVE (NEGATIVE); BLOOD, URINE NEGATIVE (NEGATIVE); COLOR,URINE YELLOW (YELLOW); LEUKOCYTE ESTERASE ,URINE 3+ (NEGATIVE); NITRITE, URINE NEGATIVE (NEGATIVE); PROTEIN,URINE NEGATIVE (NEGATIVE); UGLUCOSE NEGATIVE (NEGATIVE); UROBILINOGEN,URINE 0.2 EU/dL (0.2 - 1)
[2024-04-03 16:39] LABS: BACTERIA,URINE None Seen /HPF (None Seen); RBC,URINE 0-5 /HPF (0-5); SQUAMOUS EPITHELIAL CELL,UR 0-3 (FEW) /LPF (0-3 (FEW))
[2024-04-03] MEDS ORDERED: ACET-10509 PO (16:46)
[2024-04-03] MEDS ORDERED: CEPH-588 PO (16:46)
[2024-04-03] MEDS: HYDROcodone/APAP 5/325 MG 1 TAB TAB PO ONE (17:00)
== END 2024-04-03 17:31 | disposition home or self-care (01) ==
LOC: MED 14:00
DX: R42 Dizziness and giddiness (principal); R53.1 Weakness; M79.10 Myalgia, unspecified site; Z85.038 Personal history of other malignant neoplasm of large intestine; Z79.899 Other long term (current) drug therapy
CPT/HCPCS: 36415; 70450; 71045; 80048; 80076; 81001; 82550; 84484; 85025; 87086; 93005; 99285

== ENCOUNTER 2024-04-27 17:36 | Emergency (ER) | payer MEDICAID ==
[~2024-04-27] VITALS: Ht 165.1 cm; Wt 68.9 kg
[~2024-04-27 17:36] MED LIST changes: +ACET-10509 PO; +CEPH-588 PO
[2024-04-27 17:45] VITALS: BP 117/65; PULSE 77; RESP 18; TEMP 97.1; O2SAT 99
[2024-04-27] MEDS ORDERED: ONDANSETRON 4 MG/2 ML VIAL ONE (18:41)
[2024-04-27 18:42] LABS: BASOPHILS # (AUTO) 0.1 K/uL (0.00-0.22); BASOPHILS % (AUTO) 1.5 % (0.0-2.0); EOSINOPHILS # (AUTO) 0.3 K/uL (0-0.4); EOSINOPHILS % (AUTO) 4.3 % (0.0-4.0); HEMATOCRIT 25.7 % (36-48); HEMOGLOBIN 7.5 g/dL (12.0-16.0); LYMPHOCYTES # (AUTO) 1.1 K/uL (2.5-16.5); LYMPHOCYTES % (AUTO) 18.2 % (20.5-51.1); MEAN CORPUSCULAR HEMOGLOBIN 18 pg (27-31); MEAN CORPUSCULAR HGB CONC 29 g/dL (33-37); MONOCYTES # (AUTO) 0.4 K/uL (0.8-1.0); MONOCYTES % (AUTO) 6.1 % (1.7-9.3); NEUTROPHILS # (AUTO) 4.4 K/uL (1.8-7.7); NEUTROPHILS % (AUTO) 69.9 % (42.2-75.2); PLATELET COUNT (AUTO) 637 K/uL (140-450); RED BLOOD CELL COUNT(AUTO) 4.28 MIL/uL (4.20-5.40); WHITE BLOOD COUNT (AUTO) 6.3 K/uL (4.8-10.8)
[2024-04-27] MEDS: HYDROmorphone PFS 2 MG/ML SYR IVP ONE ×2 (18:45→22:44)
[2024-04-27 18:50] LABS: ANION GAP 11.8 (8-16); CALCIUM 9.1 mg/dL (8.5-10.1); CREATININE 0.5 mg/dL (0.6-1.3); POTASSIUM 3.8 mmol/L (3.5-5.1)
[2024-04-27 18:57] LABS: ALBUMIN 2.7 g/dL (3.4-5.0); BILIRUBIN,DIRECT 0.1 mg/dL (0.0-0.3); TOTAL BILIRUBIN 0.3 mg/dL (0.0-1.0); TOTAL PROTEIN, SERUM 6.9 g/dL (6.4-8.2)
[2024-04-27] MEDS: ONDANSETRON 4 MG/2 ML VIAL IVP ONE (19:28)
[2024-04-28] MEDS: HYDROmorphone PFS 2 MG/ML SYR IVP ONE (01:09)
[2024-04-28 05:04] VITALS: BP 131/50; PULSE 65; RESP 7; TEMP 97.7; O2SAT 98
[2024-04-28] MEDS: HYDROcodone/APAP 5/325 MG 1 TAB TAB PO ONE (05:04)
== END 2024-04-28 05:04 | disposition left against medical advice (07) ==
LOC: MED 17:36
DX: R10.84 Generalized abdominal pain (principal); Z20.822 Contact with and (suspected) exposure to COVID-19; Z85.038 Personal history of other malignant neoplasm of large intestine; Z79.899 Other long term (current) drug therapy
CPT/HCPCS: 36415; 74177; 80048; 80076; 83690; 85025; 87426; 96374; 96375; 96376; 99285; J1170; J2405; Q9967

== ENCOUNTER 2024-05-31 15:57 | Emergency (ER) | payer MEDICAID ==
[~2024-05-31] VITALS: Ht 162.6 cm; Wt 65.8 kg
[2024-05-31 16:11] VITALS: BP 131/75; PULSE 66; RESP 20; TEMP 97.7; O2SAT 100
[2024-05-31] MEDS: ONDANSETRON 4 MG/2 ML VIAL IVP ONE (16:49)
[2024-05-31] MEDS: NACL 0.9% 1,000 ML IV ONE (16:50)
[2024-05-31] MEDS: MORPHINE SULFATE 4 MG/ML SYR IVP ONE ×2 (16:51→20:06)
[2024-05-31 16:59] LABS: BASOPHILS # (AUTO) 0.1 K/uL (0.00-0.22); BASOPHILS % (AUTO) 1.3 % (0.0-2.0); EOSINOPHILS # (AUTO) 0.3 K/uL (0-0.4); HEMATOCRIT 25.9 % (36-48); HEMOGLOBIN 7.7 g/dL (12.0-16.0); LYMPHOCYTES # (AUTO) 1.7 K/uL (2.5-16.5); LYMPHOCYTES % (AUTO) 32.7 % (20.5-51.1); MEAN CORPUSCULAR HEMOGLOBIN 18 pg (27-31); MEAN CORPUSCULAR HGB CONC 30 g/dL (33-37); MEAN CORPUSCULAR VOLUME 61.6 fL (80-94); MONOCYTES # (AUTO) 0.5 K/uL (0.8-1.0); MONOCYTES % (AUTO) 10.3 % (1.7-9.3); NEUTROPHILS # (AUTO) 2.7 K/uL (1.8-7.7); NEUTROPHILS % (AUTO) 50.7 % (42.2-75.2); PLATELET COUNT (AUTO) 578 K/uL (140-450); RED BLOOD CELL COUNT(AUTO) 4.21 MIL/uL (4.20-5.40); RED CELL DISTRIBUTION WIDTH 22.3 % (11.6-13.7); WHITE BLOOD COUNT (AUTO) 5.3 K/uL (4.8-10.8)
[2024-05-31 17:15] LABS: ANION GAP 9.5 (8-16); CALCIUM 8.6 mg/dL (8.5-10.1); CREATININE 0.5 mg/dL (0.6-1.3); POTASSIUM 3.5 mmol/L (3.5-5.1)
[2024-05-31 17:22] LABS: ALBUMIN 2.5 g/dL (3.4-5.0); BILIRUBIN,DIRECT 0.1 mg/dL (0.0-0.3); TOTAL BILIRUBIN 0.2 mg/dL (0.0-1.0); TOTAL PROTEIN, SERUM 6.5 g/dL (6.4-8.2)
[2024-05-31 18:00] VITALS: TEMP 97.4
[2024-05-31 19:50] VITALS: BP 154/65; PULSE 95; RESP 16; O2SAT 65
[2024-05-31] MEDS ORDERED: MORPHINE SULFATE 4 MG/ML SYR ONE (20:02)
[2024-05-31] MEDS ORDERED: ACET-8905 PO (20:25)
== END 2024-05-31 22:00 | disposition home or self-care (01) ==
LOC: MED 15:57
DX: K59.00 Constipation, unspecified (principal); G89.29 Other chronic pain; R10.84 Generalized abdominal pain; R10.10 Upper abdominal pain, unspecified; Z85.038 Personal history of other malignant neoplasm of large intestine; Z79.1 Long term (current) use of non-steroidal anti-inflammatories (NSAID); Z79.2 Long term (current) use of antibiotics; Z79.899 Other long term (current) drug therapy
CPT/HCPCS: 36415; 74177; 80048; 80076; 83605; 83690; 85025; 96361; 96374; 96375; 96376; 99285; J2270; J2405; J7030; Q9967

== ENCOUNTER 2024-06-01 09:08 | Inpatient (IN) | payer MEDICAID ==
[~2024-06-01] VITALS: Ht 162.6 cm; Wt 63.5 kg
[2024-06-01 09:20] VITALS: BP 98/49; PULSE 75; RESP 18; TEMP 97.5; O2SAT 100
[2024-06-01] MEDS ORDERED: KETOROLAC 60 MG/2 ML VIAL IM ONE (09:45)
[2024-06-01] MEDS: MORPHINE SULFATE 4 MG/ML SYR IVP ONE (10:04)
[2024-06-01] MEDS: NACL 0.9% 1,000 ML IV ONE (10:05)
[2024-06-01 10:37] LABS: BASOPHILS # (AUTO) 0.1 K/uL (0.00-0.22); BASOPHILS % (AUTO) 1.5 % (0.0-2.0); EOSINOPHILS # (AUTO) 0.3 K/uL (0-0.4); HEMATOCRIT 25.3 % (36-48); HEMOGLOBIN 7.6 g/dL (12.0-16.0); LYMPHOCYTES # (AUTO) 1.6 K/uL (2.5-16.5); LYMPHOCYTES % (AUTO) 31.5 % (20.5-51.1); MEAN CORPUSCULAR HEMOGLOBIN 18 pg (27-31); MEAN CORPUSCULAR HGB CONC 30 g/dL (33-37); MONOCYTES # (AUTO) 0.5 K/uL (0.8-1.0); MONOCYTES % (AUTO) 9.8 % (1.7-9.3); NEUTROPHILS # (AUTO) 2.6 K/uL (1.8-7.7); NEUTROPHILS % (AUTO) 51.2 % (42.2-75.2); PLATELET COUNT (AUTO) 567 K/uL (140-450); RED BLOOD CELL COUNT(AUTO) 4.15 MIL/uL (4.20-5.40); RED CELL DISTRIBUTION WIDTH 22.2 % (11.6-13.7); WHITE BLOOD COUNT (AUTO) 5.1 K/uL (4.8-10.8)
[2024-06-01 10:52] LABS: ANION GAP 8.4 (8-16); CALCIUM 8.8 mg/dL (8.5-10.1); CARBON DIOXIDE 30.2 mmol/L (21-32); CREATININE 0.6 mg/dL (0.6-1.3); POTASSIUM 3.6 mmol/L (3.5-5.1)
[2024-06-01] MEDS ORDERED: ACETAMINOPHEN 325 MG TAB PO PRN (12:30)
[2024-06-01] MEDS ORDERED: LORazepam 1 MG TAB PO PRN (12:30)
[2024-06-01] MEDS ORDERED: ONDANSETRON 4 MG/2 ML VIAL IVP PRN (12:30)
[2024-06-01] MEDS: NACL 0.9% 1,000 ML IV SCH (13:46)
[2024-06-01 17:10] VITALS: PULSE 65; RESP 20; O2SAT 97
[2024-06-01 20:00] VITALS: BP 114/52; PULSE 58; RESP 19; TEMP 97.7; O2SAT 96
[2024-06-01] MEDS: ZOLPIDEM 5 MG TAB PO PRN (21:16)
[2024-06-02 04:00] VITALS: BP 150/52; PULSE 54; RESP 17; TEMP 97.7; O2SAT 92
[2024-06-02 05:57] LABS: BASOPHILS # (AUTO) 0.1 K/uL (0.00-0.22); EOSINOPHILS # (AUTO) 0.2 K/uL (0-0.4); EOSINOPHILS % (AUTO) 4.1 % (0.0-4.0); HEMOGLOBIN 7.4 g/dL (12.0-16.0); LYMPHOCYTES # (AUTO) 1.7 K/uL (2.5-16.5); LYMPHOCYTES % (AUTO) 29.6 % (20.5-51.1); MEAN CORPUSCULAR HEMOGLOBIN 18 pg (27-31); MEAN CORPUSCULAR HGB CONC 30 g/dL (33-37); MEAN CORPUSCULAR VOLUME 61.7 fL (80-94); MONOCYTES # (AUTO) 0.5 K/uL (0.8-1.0); MONOCYTES % (AUTO) 9.2 % (1.7-9.3); NEUTROPHILS # (AUTO) 3.2 K/uL (1.8-7.7); NEUTROPHILS % (AUTO) 56.1 % (42.2-75.2); PLATELET COUNT (AUTO) 553 K/uL (140-450); RED BLOOD CELL COUNT(AUTO) 4.06 MIL/uL (4.20-5.40); RED CELL DISTRIBUTION WIDTH 22.5 % (11.6-13.7)
[2024-06-02 06:25] LABS: WHITE BLOOD COUNT (AUTO) 5.7 K/uL (4.8-10.8)
[2024-06-02 06:47] LABS: ALBUMIN 2.3 g/dL (3.4-5.0); ANION GAP 10.2 (8-16); CALCIUM 8.6 mg/dL (8.5-10.1); CARBON DIOXIDE 29.5 mmol/L (21-32); CREATININE 0.5 mg/dL (0.6-1.3); POTASSIUM 3.7 mmol/L (3.5-5.1); TOTAL BILIRUBIN 0.2 mg/dL (0.0-1.0); TOTAL PROTEIN, SERUM 6.3 g/dL (6.4-8.2)
[2024-06-02 08:00] VITALS: PULSE 60; RESP 18; O2SAT 99
[2024-06-02] MEDS: PANTOPRAZOLE 40 MG INJ VIAL IVP SCH (10:02)
[2024-06-02] MEDS: DOCUSATE SODIUM 100 MG GELCAP PO SCH (10:07)
[2024-06-02] MEDS: MORPHINE SULFATE 4 MG/ML SYR IVP PRN (10:45)
[2024-06-02 20:00] VITALS: BP 132/51; PULSE 61; RESP 17; TEMP 98.1; O2SAT 96
[2024-06-02] MEDS: POLYETHYLENE GLYCOL 17 GM/PKT PO SCH (21:18)
[2024-06-03 04:00] VITALS: BP 125/58; PULSE 59; RESP 18; TEMP 97.7; O2SAT 97
[2024-06-03 08:00] VITALS: BP 99/47; PULSE 61; PULSE 62; RESP 17; TEMP 97.8; O2SAT 96
[2024-06-03 10:12] LABS: HEMATOCRIT 25.9 % (36-48); HEMOGLOBIN 7.8 g/dL (12.0-16.0); MEAN CORPUSCULAR HEMOGLOBIN 19 pg (27-31); MEAN CORPUSCULAR HGB CONC 30 g/dL (33-37); MEAN CORPUSCULAR VOLUME 61.8 fL (80-94); PLATELET COUNT (AUTO) 482 K/uL (140-450); RED BLOOD CELL COUNT(AUTO) 4.19 MIL/uL (4.20-5.40); RED CELL DISTRIBUTION WIDTH 22.5 % (11.6-13.7); WHITE BLOOD COUNT (AUTO) 5.2 K/uL (4.8-10.8)
[2024-06-03 10:47] LABS: EOSINOPHILS % (MANUAL) 8 % (0-4); LYMPHOCYTES % (MANUAL) 26 % (20-46); MONOCYTES % (MANUAL) 6 % (5-12); PLATELET ESTIMATE SLIGHTLY INCREASED
[2024-06-03 10:48] LABS: BURR CELLS 1+; HYPOCHROMASIA 2+; OVALOCYTES 2+; ROULEAU 1+; SCHISTOCYTES 1+; SPHEROCYTES 1+; STOMATOCYTES 1+; TEAR DROP CELLS 1+
[2024-06-03 11:27] LABS: ALBUMIN 2.3 g/dL (3.4-5.0); ANION GAP 8.4 (8-16); CALCIUM 8.2 mg/dL (8.5-10.1); CARBON DIOXIDE 30.1 mmol/L (21-32); CREATININE 0.6 mg/dL (0.6-1.3); POTASSIUM 3.5 mmol/L (3.5-5.1); TOTAL BILIRUBIN 0.2 mg/dL (0.0-1.0); TOTAL PROTEIN, SERUM 6.2 g/dL (6.4-8.2)
[2024-06-03] MEDS: MORPHINE SULFATE 2 MG/ML SYR IVP PRN (15:36)
[2024-06-03 16:00] VITALS: BP 148/78; PULSE 68; RESP 20; TEMP 97.8; O2SAT 100
== END 2024-06-03 19:00 | disposition left against medical advice (07) | DRG 240 ==
LOC: MED 09:08 → MMU 12:28 → MTU 17:10
PROVIDERS: ADMIT Student in an Organized Health Care Education/Training Program; ATTEND Student in an Organized Health Care Education/Training Program
DX: C18.9 Malignant neoplasm of colon, unspecified (principal); K56.690 Other partial intestinal obstruction; E44.1 Mild protein-calorie malnutrition; C78.7 Secondary malignant neoplasm of liver and intrahepatic bile duct; K63.89 Other specified diseases of intestine; D64.9 Anemia, unspecified; Z53.29 Procedure and treatment not carried out because of patient's decision for other reasons; K56.7 Ileus, unspecified; Z79.01 Long term (current) use of anticoagulants; Z79.899 Other long term (current) drug therapy; Z90.49 Acquired absence of other specified parts of digestive tract; Z68.24 Body mass index [BMI] 24.0-24.9, adult
CPT/HCPCS: 36415; 80048; 80053; 85025; 96361; 96374; 99285; J1644; J1885; J2270; J2470

== ENCOUNTER 2024-06-16 12:00 | Emergency (ER) | payer MEDICAID ==
[~2024-06-16] VITALS: Ht 160 cm; Wt 47.2 kg
[2024-06-16 12:06] VITALS: BP 154/73; PULSE 66; RESP 17; TEMP 97.3; O2SAT 100
[2024-06-16 12:50] VITALS: O2SAT 100
[2024-06-16 13:00] LABS: BASOPHILS # (AUTO) 0.1 K/uL (0.00-0.22); BASOPHILS % (AUTO) 1.9 % (0.0-2.0); EOSINOPHILS # (AUTO) 0.2 K/uL (0-0.4); EOSINOPHILS % (AUTO) 4.2 % (0.0-4.0); HEMATOCRIT 27.9 % (36-48); HEMOGLOBIN 8.4 g/dL (12.0-16.0); LYMPHOCYTES # (AUTO) 1.5 K/uL (2.5-16.5); LYMPHOCYTES % (AUTO) 25.2 % (20.5-51.1); MEAN CORPUSCULAR HEMOGLOBIN 20 pg (27-31); MEAN CORPUSCULAR HGB CONC 30 g/dL (33-37); MEAN CORPUSCULAR VOLUME 65.8 fL (80-94); MONOCYTES # (AUTO) 0.5 K/uL (0.8-1.0); MONOCYTES % (AUTO) 8.9 % (1.7-9.3); NEUTROPHILS # (AUTO) 3.6 K/uL (1.8-7.7); NEUTROPHILS % (AUTO) 59.8 % (42.2-75.2); PLATELET COUNT (AUTO) 599 K/uL (140-450); RED BLOOD CELL COUNT(AUTO) 4.24 MIL/uL (4.20-5.40); RED CELL DISTRIBUTION WIDTH 25.5 % (11.6-13.7)
[2024-06-16] MEDS: NACL 0.9% 1,000 ML IV SCH (13:19)
[2024-06-16] MEDS: KETOROLAC 30 MG/ML VIAL IVP ONE (13:20)
[2024-06-16] MEDS: ONDANSETRON 4 MG/2 ML VIAL IVP ONE (13:20)
[2024-06-16 13:24] LABS: ALBUMIN 2.2 g/dL (3.4-5.0); BILIRUBIN,DIRECT 0.1 mg/dL (0.0-0.3); TOTAL BILIRUBIN 0.2 mg/dL (0.0-1.0); TOTAL PROTEIN, SERUM 6.3 g/dL (6.4-8.2)
[2024-06-16 13:29] LABS: ANION GAP 8.3 (8-16); CALCIUM 8.5 mg/dL (8.5-10.1); CARBON DIOXIDE 29.7 mmol/L (21-32); CREATININE 0.7 mg/dL (0.6-1.3)
[2024-06-16 13:55] LABS: ANISOCYTOSIS 3+
[2024-06-16 13:56] LABS: HELMET CELLS 1+; OVALOCYTES 1+; SCHISTOCYTES 1+; TARGET CELLS 1+
[2024-06-16] MEDS: MORPHINE SULFATE 4 MG/ML SYR IVP ONE (14:00)
[2024-06-16] MEDS: HYDROmorphone PFS 2 MG/ML SYR IVP ONE ×2 (16:58→23:13)
[2024-06-16 19:24] VITALS: O2SAT 96
[2024-06-16 22:06] VITALS: O2SAT 96
[2024-06-17 00:42] VITALS: O2SAT 96
[2024-06-17 01:16] VITALS: BP 132/57; PULSE 50; RESP 13; TEMP 97.6; O2SAT 96
== END 2024-06-17 01:18 | disposition short-term general hospital (02) ==
LOC: MED 12:00
DX: K56.600 Partial intestinal obstruction, unspecified as to cause (principal); C18.2 Malignant neoplasm of ascending colon; Z20.822 Contact with and (suspected) exposure to COVID-19; Z86.39 Personal history of other endocrine, nutritional and metabolic disease; Z79.899 Other long term (current) drug therapy
CPT/HCPCS: 36415; 74176; 80048; 80076; 83690; 85025; 87426; 96361; 96374; 96375; 96376; 99285; J1170; J1885; J2270; J2405; J7030

== ENCOUNTER 2024-06-23 09:32 | Emergency (ER) | payer MEDICAID ==
[~2024-06-23] VITALS: Ht 162.6 cm; Wt 62.1 kg
[2024-06-23 09:40] VITALS: BP 144/84; PULSE 71; RESP 16; TEMP 97.5; O2SAT 99
[2024-06-23] MEDS: MORPHINE SULFATE 4 MG/ML SYR IM ONE (10:17)
[2024-06-23 10:41] LABS: BASOPHILS # (AUTO) 0.1 K/uL (0.00-0.22); BASOPHILS % (AUTO) 1.1 % (0.0-2.0); EOSINOPHILS # (AUTO) 0.2 K/uL (0-0.4); EOSINOPHILS % (AUTO) 2.9 % (0.0-4.0); HEMOGLOBIN 8.8 g/dL (12.0-16.0); LYMPHOCYTES # (AUTO) 1.2 K/uL (2.5-16.5); LYMPHOCYTES % (AUTO) 18.4 % (20.5-51.1); MEAN CORPUSCULAR HEMOGLOBIN 20 pg (27-31); MEAN CORPUSCULAR HGB CONC 30 g/dL (33-37); MEAN CORPUSCULAR VOLUME 66.3 fL (80-94); MONOCYTES # (AUTO) 0.7 K/uL (0.8-1.0); MONOCYTES % (AUTO) 9.8 % (1.7-9.3); NEUTROPHILS # (AUTO) 4.5 K/uL (1.8-7.7); NEUTROPHILS % (AUTO) 67.8 % (42.2-75.2); PLATELET COUNT (AUTO) 529 K/uL (140-450); RED BLOOD CELL COUNT(AUTO) 4.52 MIL/uL (4.20-5.40); RED CELL DISTRIBUTION WIDTH 25.1 % (11.6-13.7); WHITE BLOOD COUNT (AUTO) 6.7 K/uL (4.8-10.8)
[2024-06-23 10:54] LABS: ANION GAP 13.2 (8-16); CALCIUM 9.1 mg/dL (8.5-10.1); CARBON DIOXIDE 28.4 mmol/L (21-32); CREATININE 0.5 mg/dL (0.6-1.3); POTASSIUM 3.6 mmol/L (3.5-5.1)
[2024-06-23 11:00] LABS: ALBUMIN 2.5 g/dL (3.4-5.0); BILIRUBIN,DIRECT 0.1 mg/dL (0.0-0.3); TOTAL BILIRUBIN 0.3 mg/dL (0.0-1.0); TOTAL PROTEIN, SERUM 6.9 g/dL (6.4-8.2)
== END 2024-06-23 15:24 | disposition home or self-care (01) ==
LOC: MED 09:32
DX: C78.5 Secondary malignant neoplasm of large intestine and rectum (principal); Z79.899 Other long term (current) drug therapy
CPT/HCPCS: 36415; 74018; 80048; 80076; 83690; 85025; 96372; 99291; J2270

== ENCOUNTER 2024-06-28 06:20 | Emergency (ER) | payer MEDICAID ==
[~2024-06-28] VITALS: Ht 160 cm; Wt 61.2 kg
[~2024-06-28 06:20] MED LIST changes: -ACET-10509 PO; +ACET500T99 PO
[2024-06-28 06:29] VITALS: BP 121/76; PULSE 108; RESP 18; TEMP 98; O2SAT 98
[2024-06-28 06:55] VITALS: O2SAT 98
[2024-06-28 07:00] LABS: BASOPHILS # (AUTO) 0.1 K/uL (0.00-0.22); BASOPHILS % (AUTO) 1.9 % (0.0-2.0); EOSINOPHILS # (AUTO) 0.1 K/uL (0-0.4); EOSINOPHILS % (AUTO) 1.9 % (0.0-4.0); HEMATOCRIT 29.3 % (36-48); HEMOGLOBIN 9.2 g/dL (12.0-16.0); LYMPHOCYTES # (AUTO) 1.8 K/uL (2.5-16.5); MEAN CORPUSCULAR HEMOGLOBIN 21 pg (27-31); MEAN CORPUSCULAR HGB CONC 31 g/dL (33-37); MONOCYTES # (AUTO) 0.7 K/uL (0.8-1.0); MONOCYTES % (AUTO) 10.9 % (1.7-9.3); NEUTROPHILS # (AUTO) 3.9 K/uL (1.8-7.7); NEUTROPHILS % (AUTO) 58.3 % (42.2-75.2); PLATELET COUNT (AUTO) 557 K/uL (140-450); RED BLOOD CELL COUNT(AUTO) 4.37 MIL/uL (4.20-5.40); RED CELL DISTRIBUTION WIDTH 27.7 % (11.6-13.7); WHITE BLOOD COUNT (AUTO) 6.7 K/uL (4.8-10.8)
[2024-06-28] MEDS: MORPHINE SULFATE 4 MG/ML SYR IVP ONE (07:02)
[2024-06-28 07:11] VITALS: BP 124/75; PULSE 81; RESP 16; TEMP 98.5; O2SAT 99
[2024-06-28 07:20] LABS: ANION GAP 12.6 (8-16); CALCIUM 8.6 mg/dL (8.5-10.1); CARBON DIOXIDE 27.1 mmol/L (21-32); CREATININE 0.5 mg/dL (0.6-1.3); POTASSIUM 3.7 mmol/L (3.5-5.1)
[2024-06-28 07:22] LABS: ALBUMIN 2.5 g/dL (3.4-5.0); BILIRUBIN,DIRECT 0.1 mg/dL (0.0-0.3); TOTAL BILIRUBIN 0.4 mg/dL (0.0-1.0); TOTAL PROTEIN, SERUM 7.1 g/dL (6.4-8.2)
[2024-06-28] MEDS ORDERED: ONDA-188 PO (10:36)
== END 2024-06-28 10:45 | disposition home or self-care (01) ==
LOC: MED 06:20
DX: R10.84 Generalized abdominal pain (principal); R11.0 Nausea; C18.9 Malignant neoplasm of colon, unspecified; Z79.899 Other long term (current) drug therapy
CPT/HCPCS: 36415; 74177; 80048; 80076; 83690; 85025; 96374; 99285; J2270; Q9967

== ENCOUNTER 2024-06-30 12:12 | Emergency (ER) | payer MEDICAID ==
[~2024-06-30] VITALS: Ht 157.5 cm; Wt 62.7 kg
[~2024-06-30 12:12] MED LIST changes: +ONDA-188 PO
[2024-06-30 12:26] VITALS: BP 142/85; PULSE 61; RESP 17; TEMP 98.1; O2SAT 100
[2024-06-30 12:55] LABS: BASOPHILS # (AUTO) 0.1 K/uL (0.00-0.22); BASOPHILS % (AUTO) 1.5 % (0.0-2.0); EOSINOPHILS # (AUTO) 0.1 K/uL (0-0.4); EOSINOPHILS % (AUTO) 2.3 % (0.0-4.0); HEMATOCRIT 28.1 % (36-48); HEMOGLOBIN 8.6 g/dL (12.0-16.0); LYMPHOCYTES # (AUTO) 1.4 K/uL (2.5-16.5); LYMPHOCYTES % (AUTO) 27.9 % (20.5-51.1); MEAN CORPUSCULAR HEMOGLOBIN 21 pg (27-31); MEAN CORPUSCULAR HGB CONC 31 g/dL (33-37); MEAN CORPUSCULAR VOLUME 67.6 fL (80-94); MONOCYTES # (AUTO) 0.5 K/uL (0.8-1.0); NEUTROPHILS # (AUTO) 2.8 K/uL (1.8-7.7); NEUTROPHILS % (AUTO) 57.3 % (42.2-75.2); PLATELET COUNT (AUTO) 578 K/uL (140-450); RED BLOOD CELL COUNT(AUTO) 4.15 MIL/uL (4.20-5.40); RED CELL DISTRIBUTION WIDTH 27.4 % (11.6-13.7)
[2024-06-30 13:02] LABS: ANION GAP 12.3 (8-16); CALCIUM 8.7 mg/dL (8.5-10.1); CREATININE 0.7 mg/dL (0.6-1.3); POTASSIUM 3.3 mmol/L (3.5-5.1)
[2024-06-30 13:16] LABS: ALANINE AMINOTRANSFERASE 17 U/L (12-78); ALBUMIN 2.6 g/dL (3.4-5.0); ALKALINE PHOSPHATASE 312 U/L (50-136); ASPARTATE AMINOTRANSFERASE 43 U/L (15-37); BILIRUBIN,DIRECT 0.1 mg/dL (0.0-0.3); LIPASE 15 U/L (16-77); TOTAL BILIRUBIN 0.4 mg/dL (0.0-1.0); TOTAL PROTEIN, SERUM 7.4 g/dL (6.4-8.2)
[2024-06-30] MEDS: ONDANSETRON 4 MG/2 ML VIAL IVP ONE (13:18)
[2024-06-30] MEDS: MORPHINE SULFATE 4 MG/ML SYR IVP ONE ×2 (13:18→16:05)
[2024-06-30 13:28] LABS: APPEARANCE,URINE CLEAR (CLEAR); BILIRUBIN,URINE NEGATIVE (NEGATIVE); BLOOD, URINE NEGATIVE (NEGATIVE); COLOR,URINE YELLOW (YELLOW); LEUKOCYTE ESTERASE ,URINE NEGATIVE (NEGATIVE); NITRITE, URINE NEGATIVE (NEGATIVE); PROTEIN,URINE TRACE (NEGATIVE); UGLUCOSE NEGATIVE (NEGATIVE)
[2024-06-30 14:20] LABS: ANISOCYTOSIS 3+
[2024-06-30 14:21] LABS: BURR CELLS 1+; OVALOCYTES 1+; SCHISTOCYTES 2+; TARGET CELLS 1+; TEAR DROP CELLS 1+
[2024-06-30 18:22] VITALS: TEMP 97.2
[2024-06-30] MEDS: HYDROcodone/APAP 10/325 MG 1 TAB TAB PO ONE (18:59)
[2024-06-30] MEDS: POTASSIUM CHLORIDE 10 MEQ TABER PO ONE (20:10)
[2024-06-30] MEDS: POTASSIUM CHL 20 MEQ/NACL 0.9% 1,000 ML IV ONE (21:12)
[2024-07-01 02:00] VITALS: BP 125/75; PULSE 60; RESP 18; O2SAT 96
[2024-07-01] MEDS: HYDROcodone/APAP 5/325 MG 1 TAB TAB PO ONE (02:46)
== END 2024-07-01 04:25 | disposition short-term general hospital (02) ==
LOC: MED 12:12
DX: R11.2 Nausea with vomiting, unspecified (principal); C18.9 Malignant neoplasm of colon, unspecified; Z20.822 Contact with and (suspected) exposure to COVID-19; M19.90 Unspecified osteoarthritis, unspecified site; F17.200 Nicotine dependence, unspecified, uncomplicated; Z90.49 Acquired absence of other specified parts of digestive tract; Z98.890 Other specified postprocedural states; Z79.899 Other long term (current) drug therapy
CPT/HCPCS: 36415; 71045; 80048; 80076; 81003; 83690; 83880; 84484; 85025; 87426; 93005; 96365; 96366; 96375; 96376; 99285; J2270; J2405; J7030

== ENCOUNTER 2024-07-14 08:05 | Emergency (ER) | payer MEDICAID ==
[~2024-07-14] VITALS: Ht 157.5 cm; Wt 59.0 kg
[2024-07-14 08:06] VITALS: BP 163/52; PULSE 75; RESP 17; TEMP 98.3; O2SAT 100
[2024-07-14 08:32] LABS: BASOPHILS % (AUTO) 0.7 % (0.0-2.0); EOSINOPHILS # (AUTO) 0.1 K/uL (0-0.4); EOSINOPHILS % (AUTO) 1.2 % (0.0-4.0); HEMATOCRIT 27.7 % (36-48); HEMOGLOBIN 8.7 g/dL (12.0-16.0); LYMPHOCYTES # (AUTO) 1.4 K/uL (2.5-16.5); LYMPHOCYTES % (AUTO) 19.6 % (20.5-51.1); MEAN CORPUSCULAR HEMOGLOBIN 22 pg (27-31); MEAN CORPUSCULAR HGB CONC 31 g/dL (33-37); MEAN CORPUSCULAR VOLUME 69.3 fL (80-94); MONOCYTES # (AUTO) 0.5 K/uL (0.8-1.0); MONOCYTES % (AUTO) 7.9 % (1.7-9.3); NEUTROPHILS # (AUTO) 4.9 K/uL (1.8-7.7); NEUTROPHILS % (AUTO) 70.6 % (42.2-75.2); PLATELET COUNT (AUTO) 504 K/uL (140-450); RED CELL DISTRIBUTION WIDTH 28.6 % (11.6-13.7); WHITE BLOOD COUNT (AUTO) 6.9 K/uL (4.8-10.8)
[2024-07-14] MEDS: NACL 0.9% 1,000 ML IV ONE (08:48)
[2024-07-14] MEDS: HYDROmorphone PFS 2 MG/ML SYR IVP ONE ×2 (08:48→14:42)
[2024-07-14 08:49] LABS: ANION GAP 9.1 (8-16); CALCIUM 7.9 mg/dL (8.5-10.1); CARBON DIOXIDE 29.1 mmol/L (21-32); CREATININE 0.6 mg/dL (0.6-1.3); POTASSIUM 3.2 mmol/L (3.5-5.1)
[2024-07-14 08:51] LABS: ALBUMIN 1.8 g/dL (3.4-5.0); BILIRUBIN,DIRECT 0.1 mg/dL (0.0-0.3); TOTAL BILIRUBIN 0.2 mg/dL (0.0-1.0); TOTAL PROTEIN, SERUM 5.9 g/dL (6.4-8.2)
[2024-07-14 11:14] LABS: APPEARANCE,URINE SL CLOUDY (CLEAR); BILIRUBIN,URINE NEGATIVE (NEGATIVE); BLOOD, URINE NEGATIVE (NEGATIVE); COLOR,URINE AMBER (YELLOW); LEUKOCYTE ESTERASE ,URINE 1+ (NEGATIVE); NITRITE, URINE POSITIVE (NEGATIVE); PROTEIN,URINE NEGATIVE (NEGATIVE); UGLUCOSE NEGATIVE (NEGATIVE)
[2024-07-14 11:22] LABS: BACTERIA,URINE >30 (MANY) /HPF (None Seen); RBC,URINE 0-5 /HPF (0-5); SQUAMOUS EPITHELIAL CELL,UR 0-3 (FEW) /LPF (0-3 (FEW)); WBC,URINE 16-25 (MOD) /HPF (0-5)
[2024-07-14] MEDS ORDERED: cefTRIAXone 1,000 MG VIAL ONE (12:11)
[2024-07-14 14:02] LABS: FLU A ANTIGEN negative (NEGATIVE); FLU B ANTIGEN negative (NEGATIVE)
[2024-07-14 16:55] VITALS: BP 128/88; PULSE 71; RESP 16; TEMP 97.8; O2SAT 97
== END 2024-07-14 16:55 | disposition short-term general hospital (02) ==
LOC: MED 08:05
DX: C18.9 Malignant neoplasm of colon, unspecified (principal); K56.600 Partial intestinal obstruction, unspecified as to cause; N12 Tubulo-interstitial nephritis, not specified as acute or chronic; R11.2 Nausea with vomiting, unspecified; Z20.822 Contact with and (suspected) exposure to COVID-19; Z79.899 Other long term (current) drug therapy
CPT/HCPCS: 36415; 74177; 74250; 80048; 80076; 81001; 83690; 85025; 87040; 87086; 87426; 87804; 96361; 96365; 96375; 96376; 99285; J0696; J1170; Q9967; 87186; J7030